=== PATIENT | female | born 1955 | race Two or more races ===

== ENCOUNTER → 2023-12-12 | Outpatient (CLI) | payer MEDICARE | END | disposition home or self-care (01) | LOC: XYW 13:24 | PROVIDERS: ATTEND Internal Medicine | DX: I51.7 Cardiomegaly (principal); R60.0 Localized edema | CPT/HCPCS: 93306 ==

== ENCOUNTER → 2023-12-19 | Outpatient (CLI) | payer MEDICARE ==
[2023-12-19 07:26] LABS: Basophils # (auto) 0 10 ^3/uL (0-0.2); Basophils % (auto) 0.6 % (0.0-2.0); Eosinophils # (auto) 0 10 ^3/uL (0-0.8); Eosinophils % (auto) 0.5 % (0.0-7.0); Hematocrit 38.3 % (36.0-46.0); Hemoglobin 12.6 g/dL (12.2-16.2); Lymphocytes # (auto) 2.4 10 ^3/uL (0.4-5.4); Lymphocytes % (auto) 32.3 % (10.0-50.0); Mean Corpuscular Hemoglobin 31.4 pg (28.0-32.0); Mean Corpuscular Hgb Conc. 32.9 g/dL (32.0-36.0); Mean Corpuscular Volume 95.5 fL (80.0-100.0); Monocytes # (auto) 0.6 10 ^3/uL (0-1.3); Monocytes % (auto) 8.5 % (0.0-12.0); Neutrophils # (auto) 4.4 10 ^3/uL (1.6-8.6); Neutrophils % (auto) 58.1 % (37.0-80.0); Red Blood Cells 4.02 10^6/uL (4.0-5.20); Red Cell Distribution Width 13.4 % (11.8-14.3); White Blood Cell 7.5 10^3/uL (4.4-10.8)
[2023-12-19 08:03] LABS: Erythrocyte Sedimentation Rate 20 mm/hr (0-20)
[2023-12-19 08:09] LABS: Alanine Aminotransferase 42 U/L (7-40); Albumin 4.2 g/dL (3.2-4.8); Alkaline Phosphatase 90 U/L (46-116); Anion Gap 6 (5-15); Aspartate Aminotransferase 26 U/L (13-40); BUN/Creatinine Ratio 17.9 (10.0-20.0); Blood Urea Nitrogen 14 mg/dL (9-23); CRP High Sensitivity 0.15 mg/dL (<1.0); Calcium 9.6 mg/dL (8.5-10.1); Carbon Dioxide 29 mmol/L (20-30); Chloride 108 mmol/L (98-107); Cholesterol 192 mg/dL (< 200); Glucose 97 mg/dL (74-106); LDL Cholesterol 119 mg/dL (< 100); Potassium 3.9 mmol/L (3.5-5.1); Sodium 143 mmol/L (136-145); Triglycerides 107 mg/dL (< 150)
[2023-12-19 08:10] LABS: Bilirubin, Total 0.9 mg/dL (0.2-1.0); HDL Cholesterol 62 mg/dL (40-59); Total Protein 6.7 g/dL (5.7-8.2)
== END | disposition home or self-care (01) ==
LOC: LAB 07:11
PROVIDERS: ATTEND Internal Medicine
DX: M25.551 Pain in right hip (principal); R60.0 Localized edema; E78.00 Pure hypercholesterolemia, unspecified
CPT/HCPCS: 36415; 80053; 80061; 83036; 84443; 85025; 85379; 85652; 86141

== ENCOUNTER → 2024-05-01 | Outpatient (CLI) | payer MEDICARE ==
[2024-05-01 16:28] LABS: Basophils # (auto) 0 10 ^3/uL (0-0.2); Basophils % (auto) 0.4 % (0.0-2.0); Eosinophils # (auto) 0 10 ^3/uL (0-0.8); Eosinophils % (auto) 0.2 % (0.0-7.0); Hematocrit 34.8 % (36.0-46.0); Hemoglobin 11.7 g/dL (12.2-16.2); Lymphocytes # (auto) 2.2 10 ^3/uL (0.4-5.4); Lymphocytes % (auto) 22.6 % (10.0-50.0); Mean Corpuscular Hgb Conc. 33.6 g/dL (32.0-36.0); Mean Corpuscular Volume 95.4 fL (80.0-100.0); Monocytes # (auto) 0.9 10 ^3/uL (0-1.3); Monocytes % (auto) 8.7 % (0.0-12.0); Neutrophils # (auto) 6.6 10 ^3/uL (1.6-8.6); Neutrophils % (auto) 68.1 % (37.0-80.0); Red Blood Cells 3.65 10^6/uL (4.0-5.20); White Blood Cell 9.8 10^3/uL (4.4-10.8)
[2024-05-01 16:47] LABS: Alanine Aminotransferase 29 U/L (7-40); Albumin 4.1 g/dL (3.2-4.8); Alkaline Phosphatase 89 U/L (46-116); Anion Gap 5 (5-15); Aspartate Aminotransferase 16 U/L (13-40); BUN/Creatinine Ratio 17.2 (10.0-20.0); Blood Urea Nitrogen 17 mg/dL (9-23); Calcium 9.6 mg/dL (8.5-10.1); Carbon Dioxide 30 mmol/L (20-30); Chloride 107 mmol/L (98-107); Glucose 116 mg/dL (74-106); Sodium 142 mmol/L (136-145)
[2024-05-01 16:48] LABS: Bilirubin, Total 0.7 mg/dL (0.2-1.0)
[2024-05-01 16:49] LABS: Total Protein 6.4 g/dL (5.7-8.2)
[2024-05-01 18:00] LABS: INR 0.98 (0.9-1.15); Prothrombin Time 10.4 sec (9.3-11.8)
== END | disposition home or self-care (01) ==
LOC: LAB 16:08
PROVIDERS: ATTEND Internal Medicine
DX: I83.93 Asymptomatic varicose veins of bilateral lower extremities (principal); R22.30 Localized swelling, mass and lump, unspecified upper limb; I51.7 Cardiomegaly
CPT/HCPCS: 36415; 80053; 85025; 85610

== ENCOUNTER 2024-06-07 11:38 | Emergency (ER) | payer MEDICARE ==
[~2024-06-07] VITALS: Ht 157.5 cm; Wt 70.7 kg
[2024-06-07 12:17] VITALS: TEMP 97.7
[2024-06-07 14:08] VITALS: BP 149/55; PULSE 61; RESP 18; O2SAT 97
[2024-06-07] MEDS: HYDROcodone-ACET 5/325MG TAB PO ONE (14:21)
[2024-06-07] MEDS ORDERED: IBUP-1456 PO (14:43)
[2024-06-07] MEDS ORDERED: GABA-1250 PO (14:43)
== END 2024-06-07 14:53 | disposition home or self-care (01) ==
LOC: ER 11:38
DX: M51.16 Intervertebral disc disorders with radiculopathy, lumbar region (principal); M25.562 Pain in left knee
CPT/HCPCS: 72100; 73562

== ENCOUNTER → 2024-06-11 | Outpatient (CLI) | payer MEDICARE ==
[~2024-06-11] MED LIST: GABA-1250 PO; IBUP-1456 PO
[2024-06-11 12:49] LABS: INR 0.94 (0.9-1.15)
[2024-06-11 13:07] LABS: Erythrocyte Sedimentation Rate 42 mm/hr (0-20)
[2024-06-12 08:06] LABS: Complement C3 170 mg/dL (82-167); Rheumatoid Arthritis Factor 10.9 IU/mL (<14.0); Thyroid Peroxidase (TPO) Ab 15 IU/mL (0-34)
[2024-06-12 11:07] LABS: Anti-Nuclear Antibody Direct Negative (Negative); Anti-dsDNA Antibody <1 IU/mL (0-9); Antiscleroderma-70 Antibody <0.2 AI (0.0-0.9); RNP Antibody <0.2 AI (0.0-0.9); Sjogren's Anti-SS-A Antibody <0.2 AI (0.0-0.9); Sjogren's Anti-SS-B Antibody <0.2 AI (0.0-0.9); Smith Antibody <0.2 AI (0.0-0.9)
[2024-06-13 11:07] LABS: Actin (Smooth Muscle) Antibody 2 Units (0-19); Mitochondrial (M2) Antibody <20.0 Units (0.0-20.0)
[2024-06-13 13:07] LABS: Anti-Striated Muscle Antibody Negative (Neg:<1:100)
[2024-06-14 19:06] LABS: Estrogens Total 323 pg/mL (40-244)
== END | disposition home or self-care (01) ==
LOC: LAB 11:56
PROVIDERS: ATTEND Internal Medicine
DX: M54.50 Low back pain, unspecified (principal); R23.3 Spontaneous ecchymoses; I83.93 Asymptomatic varicose veins of bilateral lower extremities; E78.00 Pure hypercholesterolemia, unspecified; Z79.899 Other long term (current) drug therapy
CPT/HCPCS: 36415; 82306; 82672; 84403; 84443; 85610; 85652; 86160; 86225; 86235; 86376; 86431

== ENCOUNTER → 2024-06-25 | Outpatient (CLI) | payer MEDICARE ==
[2024-06-25 15:04] LABS: Basophils # (auto) 0 10 ^3/uL (0-0.2); Basophils % (auto) 0.5 % (0.0-2.0); Eosinophils # (auto) 0 10 ^3/uL (0-0.8); Eosinophils % (auto) 0.1 % (0.0-7.0); Hematocrit 34.6 % (36.0-46.0); Hemoglobin 11.7 g/dL (12.2-16.2); Lymphocytes # (auto) 1.3 10 ^3/uL (0.4-5.4); Lymphocytes % (auto) 14.2 % (10.0-50.0); Mean Corpuscular Hemoglobin 32.5 pg (28.0-32.0); Mean Corpuscular Hgb Conc. 33.7 g/dL (32.0-36.0); Mean Corpuscular Volume 96.4 fL (80.0-100.0); Monocytes # (auto) 0.7 10 ^3/uL (0-1.3); Monocytes % (auto) 7.9 % (0.0-12.0); Neutrophils # (auto) 7.3 10 ^3/uL (1.6-8.6); Neutrophils % (auto) 77.3 % (37.0-80.0); Red Blood Cells 3.59 10^6/uL (4.0-5.20); Red Cell Distribution Width 13.6 % (11.8-14.3); White Blood Cell 9.4 10^3/uL (4.4-10.8)
[2024-06-25 15:44] LABS: Erythrocyte Sedimentation Rate 26 mm/hr (0-20)
== END | disposition home or self-care (01) ==
LOC: LAB 14:46
PROVIDERS: ATTEND Internal Medicine
DX: M25.562 Pain in left knee (principal); M25.552 Pain in left hip
CPT/HCPCS: 36415; 84550; 85025; 85652

== ENCOUNTER 2024-07-14 13:16 | Emergency (ER) | payer MEDICARE ==
[~2024-07-14] VITALS: Ht 157.5 cm; Wt 70.6 kg
[2024-07-14 13:20] VITALS: TEMP 97.5
[2024-07-14 15:18] VITALS: PULSE 80; RESP 16; O2SAT 96
[2024-07-14 15:19] VITALS: BP 132/61; PULSE 69; RESP 16; O2SAT 98
[2024-07-14] MEDS ORDERED: ACET-1080 PO (15:26)
[2024-07-14] MEDS ORDERED: PRED20TA2 PO (15:26)
[2024-07-14] MEDS: methylPREDNISolone SOD SUCC 125 MG/2 ML VL IM ONE (15:29)
== END 2024-07-14 15:49 | disposition home or self-care (01) ==
LOC: ER 13:16
DX: M17.12 Unilateral primary osteoarthritis, left knee (principal); G89.29 Other chronic pain; M25.562 Pain in left knee; M54.50 Low back pain, unspecified; Z86.2 Personal history of diseases of the blood and blood-forming organs and certain disorders involving the immune mechanism; Z79.899 Other long term (current) drug therapy
CPT/HCPCS: 96372; 99283; J2919

== ENCOUNTER → 2024-07-18 | Outpatient (CLI) | payer MEDICARE ==
[~2024-07-18] MED LIST changes: +ACET-1080 PO; +ACET-1881 PO; +ERGO1CAP12 PO; +MELO15TA29 PO; +PRED20TA2 PO; +TRAM50TA2 PO
[2024-07-18 15:30] LABS: Basophils # (auto) 0 10 ^3/uL (0-0.2); Basophils % (auto) 0.2 % (0.0-2.0); Eosinophils # (auto) 0 10 ^3/uL (0-0.8); Hematocrit 35.2 % (36.0-46.0); Hemoglobin 11.5 g/dL (12.2-16.2); Lymphocytes # (auto) 0.9 10 ^3/uL (0.4-5.4); Mean Corpuscular Hemoglobin 31.7 pg (28.0-32.0); Mean Corpuscular Hgb Conc. 32.8 g/dL (32.0-36.0); Mean Corpuscular Volume 96.7 fL (80.0-100.0); Monocytes # (auto) 0.2 10 ^3/uL (0-1.3); Monocytes % (auto) 2.7 % (0.0-12.0); Neutrophils # (auto) 7.4 10 ^3/uL (1.6-8.6); Neutrophils % (auto) 87.1 % (37.0-80.0); Nucleated Red Blood Cells % 0.1 %; Platelet Count (auto) 274 10^3/uL (140-450); Red Blood Cells 3.64 10^6/uL (4.0-5.20); Red Cell Distribution Width 13.4 % (11.8-14.3); White Blood Cell 8.5 10^3/uL (4.4-10.8)
[2024-07-18 16:44] LABS: Erythrocyte Sedimentation Rate 28 mm/hr (0-20)
[2024-07-18 16:56] LABS: Free T3 2.41 pg/mL (2.3-4.2); Free T4 (Free Thyroxine) 1.34 ng/dL (0.89-1.76)
== END | disposition home or self-care (01) ==
LOC: LAB 15:03
PROVIDERS: ATTEND Internal Medicine
DX: E55.9 Vitamin D deficiency, unspecified (principal); D64.9 Anemia, unspecified; M54.50 Low back pain, unspecified
CPT/HCPCS: 36415; 82306; 84439; 84443; 84481; 85025; 85652

== ENCOUNTER 2024-07-19 13:55 | Inpatient (IN) | payer MEDICARE ==
[~2024-07-19] VITALS: Ht 157.5 cm; Wt 74.0 kg
[~2024-07-19 13:55] MED LIST changes: -ACET-1881 PO; -ERGO1CAP12 PO; -MELO15TA29 PO; -TRAM50TA2 PO
[2024-07-19 15:22] LABS: Basophils # (auto) 0 10 ^3/uL (0-0.2); Basophils % (auto) 0.1 % (0.0-2.0); Eosinophils # (auto) 0 10 ^3/uL (0-0.8); Hematocrit 35.2 % (36.0-46.0); Hemoglobin 11.8 g/dL (12.2-16.2); Lymphocytes # (auto) 1.8 10 ^3/uL (0.4-5.4); Lymphocytes % (auto) 16.4 % (10.0-50.0); Mean Corpuscular Hemoglobin 32.2 pg (28.0-32.0); Mean Corpuscular Hgb Conc. 33.5 g/dL (32.0-36.0); Monocytes # (auto) 0.9 10 ^3/uL (0-1.3); Monocytes % (auto) 7.9 % (0.0-12.0); Neutrophils # (auto) 8.4 10 ^3/uL (1.6-8.6); Neutrophils % (auto) 75.6 % (37.0-80.0); Nucleated Red Blood Cells % 0.1 %; Platelet Count (auto) 285 10^3/uL (140-450); Red Blood Cells 3.67 10^6/uL (4.0-5.20); Red Cell Distribution Width 13.5 % (11.8-14.3); White Blood Cell 11.1 10^3/uL (4.4-10.8)
[2024-07-19 15:37] LABS: Anion Gap 8 (5-15); Carbon Dioxide 24 mmol/L (20-30); Chloride 108 mmol/L (98-107); Potassium 3.4 mmol/L (3.5-5.1); Sodium 140 mmol/L (136-145)
[2024-07-19 15:38] LABS: Calcium 9.4 mg/dL (8.7-10.4)
[2024-07-19 15:43] LABS: BUN/Creatinine Ratio 29.6 (10.0-20.0); Blood Urea Nitrogen 24 mg/dL (9-23); Glucose 155 mg/dL (74-106)
[2024-07-19 16:15] LABS: INR 0.99 (0.9-1.15); Partial Thromboplastin Time 21.7 SEC (24.5-34.5); Prothrombin Time 10.5 sec (9.3-11.8)
[2024-07-19] MEDS: ENOXAPARIN SOD 100 MG/1 ML SYRINGE SC ONE (16:15)
[2024-07-19] MEDS: ONDANSETRON HCL 4 MG/2 ML VIAL IV ONE (17:47)
[2024-07-19] MEDS: MORPHINE SULFATE 4 MG/ML SYR/VIAL IV ONE (17:48)
[2024-07-19] MEDS ORDERED: HYDROcodone-ACET 5/325MG TAB PO PRN (21:45)
[2024-07-19] MEDS ORDERED: DOCUSATE SOD 100 MG CAP PO PRN (21:45)
[2024-07-19] MEDS ORDERED: ONDANSETRON HCL 4 MG/2 ML VIAL IV PRN (21:45)
[2024-07-19] MEDS ORDERED: NITROGLYCERIN 0.4 MG SL TAB SL PRN (22:30)
[2024-07-19 23:38] VITALS: PULSE 63; RESP 16; O2SAT 100
[2024-07-20] VITALS (10 sets, daily range): BP systolic 117–158; BP diastolic 68–94; PULSE 53–69; RESP 16–20; TEMP 97.4–98.2; O2SAT 96–98
[2024-07-20] MEDS: SODIUM CHLORIDE 0.9% 1,000 ML IV SCH (00:08)
[2024-07-20] MEDS: POTASSIUM CHL 20 Meq TABLET PO ONE (00:08)
[2024-07-20] MEDS ORDERED: MELO15TA29 PO (02:33)
[2024-07-20] MEDS ORDERED: ERGO1CAP12 PO (02:33)
[2024-07-20] MEDS: MORPHINE SULFATE INJ 2 MG/ml SYRG IV PRN (02:46)
[2024-07-20 04:53] LABS: Basophils # (auto) 0 10 ^3/uL (0-0.2); Basophils % (auto) 0.3 % (0.0-2.0); Eosinophils # (auto) 0 10 ^3/uL (0-0.8); Eosinophils % (auto) 0.2 % (0.0-7.0); Hematocrit 34.9 % (36.0-46.0); Hemoglobin 11.8 g/dL (12.2-16.2); Lymphocytes # (auto) 2.5 10 ^3/uL (0.4-5.4); Lymphocytes % (auto) 31.3 % (10.0-50.0); Mean Corpuscular Hemoglobin 33.2 pg (28.0-32.0); Mean Corpuscular Hgb Conc. 33.7 g/dL (32.0-36.0); Mean Corpuscular Volume 98.5 fL (80.0-100.0); Monocytes # (auto) 0.6 10 ^3/uL (0-1.3); Monocytes % (auto) 8.1 % (0.0-12.0); Neutrophils # (auto) 4.8 10 ^3/uL (1.6-8.6); Neutrophils % (auto) 60.1 % (37.0-80.0); Nucleated Red Blood Cells % 0.1 %; Platelet Count (auto) 248 10^3/uL (140-450); Red Blood Cells 3.54 10^6/uL (4.0-5.20); Red Cell Distribution Width 14.2 % (11.8-14.3); White Blood Cell 7.9 10^3/uL (4.4-10.8)
[2024-07-20 05:19] LABS: Alanine Aminotransferase 27 U/L (7-40); Albumin 3.6 g/dL (3.2-4.8); Alkaline Phosphatase 78 U/L (46-116); Anion Gap 5 (5-15); Aspartate Aminotransferase 15 U/L (13-40); BUN/Creatinine Ratio 31.2 (10.0-20.0); Blood Urea Nitrogen 24 mg/dL (9-23); Calcium 8.9 mg/dL (8.7-10.4); Carbon Dioxide 28 mmol/L (20-30); Chloride 109 mmol/L (98-107); Glucose 97 mg/dL (74-106); Potassium 3.8 mmol/L (3.5-5.1); Sodium 142 mmol/L (136-145)
[2024-07-20 05:20] LABS: Bilirubin, Total 0.7 mg/dL (0.2-1.0)
[2024-07-20] MEDS: ENOXAPARIN SOD 80 MG/0.8ML SYRINGE SC SCH (05:55)
[2024-07-20] MEDS ORDERED: TRAM50TA2 PO ×2 (06:15→06:21)
[2024-07-20] MEDS ORDERED: PRED20TA2 PO (06:17)
[2024-07-20] MEDS ORDERED: ACET-1881 PO (06:23)
[2024-07-20] MEDS ORDERED: IBUPROFEN 400 MG TAB PO PRN (14:45)
[2024-07-20] MEDS: ACETAMINOPHEN 325 MG TAB PO PRN (20:17)
[2024-07-21] VITALS (9 sets, daily range): BP systolic 144–172; BP diastolic 62–82; PULSE 63–79; RESP 17–20; TEMP 97.6–99.1; O2SAT 95–99
[2024-07-21 06:44] LABS: Basophils # (auto) 0 10 ^3/uL (0-0.2); Basophils % (auto) 0.4 % (0.0-2.0); Eosinophils # (auto) 0 10 ^3/uL (0-0.8); Eosinophils % (auto) 0.3 % (0.0-7.0); Hemoglobin 12.2 g/dL (12.2-16.2); Lymphocytes # (auto) 2.3 10 ^3/uL (0.4-5.4); Lymphocytes % (auto) 31.2 % (10.0-50.0); Mean Corpuscular Hemoglobin 32.9 pg (28.0-32.0); Mean Corpuscular Hgb Conc. 33.8 g/dL (32.0-36.0); Mean Corpuscular Volume 97.4 fL (80.0-100.0); Monocytes # (auto) 0.5 10 ^3/uL (0-1.3); Monocytes % (auto) 6.9 % (0.0-12.0); Neutrophils # (auto) 4.6 10 ^3/uL (1.6-8.6); Neutrophils % (auto) 61.2 % (37.0-80.0); Platelet Count (auto) 231 10^3/uL (140-450); Red Blood Cells 3.69 10^6/uL (4.0-5.20); Red Cell Distribution Width 13.7 % (11.8-14.3); White Blood Cell 7.4 10^3/uL (4.4-10.8)
[2024-07-21 07:07] LABS: Alanine Aminotransferase 27 U/L (7-40); Albumin 3.7 g/dL (3.2-4.8); Alkaline Phosphatase 84 U/L (46-116); Anion Gap 4 (5-15); Aspartate Aminotransferase 14 U/L (13-40); BUN/Creatinine Ratio 23.4 (10.0-20.0); Bilirubin, Total 0.8 mg/dL (0.2-1.0); Blood Urea Nitrogen 18 mg/dL (9-23); Calcium 9.2 mg/dL (8.7-10.4); Carbon Dioxide 30 mmol/L (20-30); Chloride 106 mmol/L (98-107); Glucose 92 mg/dL (74-106); Potassium 4.2 mmol/L (3.5-5.1); Sodium 140 mmol/L (136-145); Total Protein 5.9 g/dL (5.7-8.2)
[2024-07-21] MEDS: ASPirin 81 mg TAB PO SCH (10:03)
[2024-07-21] MEDS: amLODIPine BESYLATE 5 MG TAB PO ONE (17:18)
[2024-07-22] VITALS (9 sets, daily range): BP systolic 124–151; BP diastolic 59–89; PULSE 69–80; RESP 16–20; TEMP 98–98.9; O2SAT 92–96
[2024-07-22] MEDS: traMADol HCL 50 MG TAB PO PRN (09:32)
[2024-07-22] MEDS: amLODIPine BESYLATE 5 MG TAB PO SCH (09:32)
[2024-07-22] MEDS ORDERED: amLODIPine BESYLATE 5 MG TAB PO SCH (10:00)
[2024-07-22] MEDS: predniSONE 20 MG TAB PO SCH (12:16)
[2024-07-23] VITALS (8 sets, daily range): BP systolic 122–156; BP diastolic 63–83; PULSE 63–80; RESP 16–96; TEMP 97.8–98.5; O2SAT 0–97
[2024-07-23 07:24] LABS: Urine Bacteria FEW /hpf (None Seen); Urine Blood Negative /uL (Negative); Urine Budding Yeast OCCASIONAL /hpf (None Seen); Urine Clarity Clear (Clear); Urine Protein, UAD Negative (Negative); Urine Specific Gravity 1.005 (1.001-1.035); Urine Urobilinogen Normal (Negative); Urine WBC 1 /hpf (0 - 5); Urine pH 6.5 (5.0-9.0)
[2024-07-23 07:29] LABS: Urine Color STRAW (Yellow)
[2024-07-23 08:53] LABS: Basophils # (auto) 0 10 ^3/uL (0-0.2); Basophils % (auto) 0.1 % (0.0-2.0); Eosinophils # (auto) 0 10 ^3/uL (0-0.8); Hematocrit 36.7 % (36.0-46.0); Hemoglobin 12.6 g/dL (12.2-16.2); Lymphocytes # (auto) 0.9 10 ^3/uL (0.4-5.4); Lymphocytes % (auto) 10.8 % (10.0-50.0); Mean Corpuscular Hemoglobin 33.5 pg (28.0-32.0); Mean Corpuscular Hgb Conc. 34.4 g/dL (32.0-36.0); Mean Corpuscular Volume 97.5 fL (80.0-100.0); Monocytes # (auto) 0.2 10 ^3/uL (0-1.3); Monocytes % (auto) 2.9 % (0.0-12.0); Neutrophils # (auto) 7.5 10 ^3/uL (1.6-8.6); Neutrophils % (auto) 86.2 % (37.0-80.0); Platelet Count (auto) 270 10^3/uL (140-450); Red Blood Cells 3.76 10^6/uL (4.0-5.20); Red Cell Distribution Width 13.7 % (11.8-14.3); White Blood Cell 8.7 10^3/uL (4.4-10.8)
[2024-07-23 09:18] LABS: Alanine Aminotransferase 49 U/L (7-40); Albumin 4.1 g/dL (3.2-4.8); Alkaline Phosphatase 96 U/L (46-116); Anion Gap 9 (5-15); Aspartate Aminotransferase 26 U/L (13-40); BUN/Creatinine Ratio 23.9 (10.0-20.0); Blood Urea Nitrogen 16 mg/dL (9-23); Calcium 9.5 mg/dL (8.7-10.4); Carbon Dioxide 24 mmol/L (20-30); Chloride 104 mmol/L (98-107); Glucose 174 mg/dL (74-106); Potassium 3.7 mmol/L (3.5-5.1); Sodium 137 mmol/L (136-145)
[2024-07-23 09:19] LABS: Bilirubin, Total 0.7 mg/dL (0.2-1.0); Total Protein 6.6 g/dL (5.7-8.2)
[2024-07-23] MEDS: ENOXAPARIN SOD 40 MG/0.4 ML SYRINGE SC ONE (11:30)
[2024-07-23] MEDS: PANTOPRAZOLE 40 MG TAB PO ONE (13:09)
[2024-07-23] MEDS: SODIUM CHLORIDE 0.9% 1,000 ML IV SCH (13:10)
[2024-07-23] MEDS: hydrALAZINE HCL 20 MG/ML VL IV PRN (16:15)
[2024-07-24] VITALS (10 sets, daily range): BP systolic 119–151; BP diastolic 59–79; PULSE 64–80; RESP 14–22; TEMP 97.4–98.2; O2SAT 94–100
[2024-07-24] MEDS: PANTOPRAZOLE 40 MG TAB PO SCH (06:00)
[2024-07-24 07:00] LABS: INR 0.98 (0.9-1.15); Partial Thromboplastin Time 21.9 SEC (24.5-34.5); Prothrombin Time 10.4 sec (9.3-11.8)
[2024-07-24] MEDS: levoFLOXacin 750MG 150 ML IV ONE (09:27)
[2024-07-24] MEDS ORDERED: ENOXAPARIN SOD 40 MG/0.4 ML SYRINGE SC SCH (10:00)
[2024-07-24 10:32] LABS: Alanine Aminotransferase 41 U/L (7-40); Albumin 3.7 g/dL (3.2-4.8); Alkaline Phosphatase 85 U/L (46-116); Anion Gap 4 (5-15); Aspartate Aminotransferase 17 U/L (13-40); BUN/Creatinine Ratio 31.8 (10.0-20.0); Basophils # (auto) 0.1 10 ^3/uL (0-0.2); Basophils % (auto) 0.7 % (0.0-2.0); Blood Urea Nitrogen 21 mg/dL (9-23); Calcium 9.2 mg/dL (8.7-10.4); Carbon Dioxide 28 mmol/L (20-30); Chloride 108 mmol/L (98-107); Eosinophils # (auto) 0 10 ^3/uL (0-0.8); Eosinophils % (auto) 0.3 % (0.0-7.0); Glucose 93 mg/dL (74-106); Hematocrit 34.3 % (36.0-46.0); Hemoglobin 11.6 g/dL (12.2-16.2); Lymphocytes # (auto) 2.2 10 ^3/uL (0.4-5.4); Lymphocytes % (auto) 24.7 % (10.0-50.0); Mean Corpuscular Hemoglobin 33.3 pg (28.0-32.0); Mean Corpuscular Hgb Conc. 33.9 g/dL (32.0-36.0); Mean Corpuscular Volume 98.2 fL (80.0-100.0); Monocytes # (auto) 0.7 10 ^3/uL (0-1.3); Monocytes % (auto) 8.3 % (0.0-12.0); Neutrophils # (auto) 5.8 10 ^3/uL (1.6-8.6); Platelet Count (auto) 240 10^3/uL (140-450); Red Cell Distribution Width 14.2 % (11.8-14.3); Sodium 140 mmol/L (136-145); White Blood Cell 8.8 10^3/uL (4.4-10.8)
[2024-07-24 10:33] LABS: Bilirubin, Total 0.6 mg/dL (0.2-1.0); Total Protein 5.9 g/dL (5.7-8.2)
[2024-07-24] MEDS: TRANEXAMIC ACID 20 ML ONE (14:32)
[2024-07-24] MEDS ORDERED: fentaNYL CITRATE 100 MCG/2 ML VL ONE (15:14)
[2024-07-24] MEDS ORDERED: MEPERIDINE HCL (50 MG/ML) 1 ML VIAL ONE (15:15)
[2024-07-24] MEDS ORDERED: MIDAZOLAM HCL 2MG/2ML 2ml VIAL (1mg/ml) ONE (15:15)
[2024-07-24] MEDS: ceFAZolin 2 GM/D5W50ml 50 ML IV ONE (15:35)
[2024-07-24] MEDS ORDERED: DexAMETHasone SOD PHOS 10MG/1ML VIAL INJ ONE (15:44)
[2024-07-24] MEDS ORDERED: PROPOFOL 10 MG/ML 20 ML IV ONE ×2 (15:44→17:22)
[2024-07-24] MEDS: LIDOCAINE W/ EPINEPHRINE 1% 20ML VIAL ONE (16:16)
[2024-07-24] MEDS ORDERED: MORPHINE SULFATE INJ 2 MG/ml SYRG IV PRN ×2 (18:00→19:30)
[2024-07-24] MEDS ORDERED: ONDANSETRON HCL 4 MG/2 ML VIAL IV PRN (18:00)
[2024-07-24] MEDS ORDERED: HYDROmorphone HCL 2 MG/ML VL/or syr IV PRN ×2 (19:30)
[2024-07-24] MEDS: CYCLOBENZAPRINE HCL 10 MG TAB PO SCH (20:15)
[2024-07-24] MEDS: DOCUSATE SOD 100 MG CAP PO SCH (21:30)
[2024-07-24] MEDS: METOCLOPRAMIDE HCL 5MG/ml INJ 2ml VIAL IV ONE (21:30)
[2024-07-24] MEDS: ceFAZolin 1GM/50ML 50 ML IV SCH (21:31)
[2024-07-24] MEDS: KETOROLAC TROMETH 30 MG/ML 1ML VIAL IV ONE (21:31)
[2024-07-24] MEDS: D5W/SOD CHLO 0.9% 1,000 ML IV SCH (21:32)
[2024-07-25] VITALS (7 sets, daily range): BP systolic 121–163; BP diastolic 50–68; PULSE 65–90; RESP 16–18; TEMP 97.6–98.5; O2SAT 95–100
[2024-07-25] MEDS: HYDROcodone-ACET 10/325MG TAB PO PRN (02:52)
[2024-07-25 07:04] LABS: Basophils # (auto) 0 10 ^3/uL (0-0.2); Basophils % (auto) 0.1 % (0.0-2.0); Eosinophils # (auto) 0 10 ^3/uL (0-0.8); Hematocrit 29.7 % (36.0-46.0); Hemoglobin 9.8 g/dL (12.2-16.2); Lymphocytes # (auto) 0.6 10 ^3/uL (0.4-5.4); Lymphocytes % (auto) 5.4 % (10.0-50.0); Mean Corpuscular Volume 97.1 fL (80.0-100.0); Monocytes # (auto) 0.5 10 ^3/uL (0-1.3); Monocytes % (auto) 4.5 % (0.0-12.0); Neutrophils # (auto) 10.5 10 ^3/uL (1.6-8.6); Platelet Count (auto) 203 10^3/uL (140-450); Red Blood Cells 3.06 10^6/uL (4.0-5.20); Red Cell Distribution Width 13.5 % (11.8-14.3); White Blood Cell 11.7 10^3/uL (4.4-10.8)
[2024-07-25 07:47] LABS: Alanine Aminotransferase 35 U/L (7-40); Alkaline Phosphatase 77 U/L (46-116); Anion Gap 6 (5-15); Calcium 8.9 mg/dL (8.7-10.4); Carbon Dioxide 25 mmol/L (20-30); Chloride 106 mmol/L (98-107); Glucose 165 mg/dL (74-106); Sodium 137 mmol/L (136-145)
[2024-07-25 07:48] LABS: BUN/Creatinine Ratio 19.4 (10.0-20.0); Blood Urea Nitrogen 13 mg/dL (9-23)
[2024-07-25 07:49] LABS: Albumin 3.2 g/dL (3.2-4.8); Aspartate Aminotransferase 28 U/L (13-40)
[2024-07-25 07:50] LABS: Bilirubin, Total 0.5 mg/dL (0.2-1.0); Total Protein 5.1 g/dL (5.7-8.2)
[2024-07-25] MEDS: MORPHINE SULFATE INJ 2 MG/ml SYRG IV PRN ×2 (09:35→23:30)
[2024-07-25] MEDS: D5W/SOD CHLO 0.9% 1,000 ML IV SCH (15:34)
[2024-07-26] VITALS (9 sets, daily range): BP systolic 110–157; BP diastolic 50–81; PULSE 71–88; RESP 16–18; TEMP 98.1–100.4; O2SAT 16–97
[2024-07-26 06:33] LABS: Basophils # (auto) 0 10 ^3/uL (0-0.2); Basophils % (auto) 0.3 % (0.0-2.0); Eosinophils # (auto) 0 10 ^3/uL (0-0.8); Eosinophils % (auto) 0.1 % (0.0-7.0); Hematocrit 25.1 % (36.0-46.0); Hemoglobin 8.7 g/dL (12.2-16.2); Lymphocytes # (auto) 1.4 10 ^3/uL (0.4-5.4); Lymphocytes % (auto) 15.8 % (10.0-50.0); Mean Corpuscular Hemoglobin 33.9 pg (28.0-32.0); Mean Corpuscular Hgb Conc. 34.6 g/dL (32.0-36.0); Mean Corpuscular Volume 98.1 fL (80.0-100.0); Monocytes # (auto) 0.8 10 ^3/uL (0-1.3); Monocytes % (auto) 9.3 % (0.0-12.0); Neutrophils # (auto) 6.5 10 ^3/uL (1.6-8.6); Neutrophils % (auto) 74.5 % (37.0-80.0); Nucleated Red Blood Cells % 0.1 %; Platelet Count (auto) 166 10^3/uL (140-450); Red Blood Cells 2.56 10^6/uL (4.0-5.20); Red Cell Distribution Width 13.9 % (11.8-14.3); White Blood Cell 8.7 10^3/uL (4.4-10.8)
[2024-07-26 06:49] LABS: Alanine Aminotransferase 29 U/L (7-40); Alkaline Phosphatase 66 U/L (46-116); Anion Gap 7 (5-15); Aspartate Aminotransferase 26 U/L (13-40); Blood Urea Nitrogen 13 mg/dL (9-23); Calcium 8.1 mg/dL (8.7-10.4); Carbon Dioxide 27 mmol/L (20-30); Chloride 106 mmol/L (98-107); Glucose 123 mg/dL (74-106); Potassium 3.4 mmol/L (3.5-5.1); Sodium 140 mmol/L (136-145)
[2024-07-26 06:50] LABS: Albumin 3.1 g/dL (3.2-4.8); Bilirubin, Total 0.8 mg/dL (0.2-1.0); Total Protein 4.9 g/dL (5.7-8.2)
[2024-07-26] MEDS: POTASSIUM EFFERVESENT TAB 25 MEQ PO ONE (09:13)
[2024-07-26] MEDS: MAGNESIUM OXIDE 400 MG TAB PO ONE (14:32)
[2024-07-26] MEDS: ACETAMINOPHEN 325 MG TAB PO PRN (21:25)
[2024-07-27] VITALS (7 sets, daily range): BP systolic 115–144; BP diastolic 49–63; PULSE 64–92; RESP 16–18; TEMP 98–99.3; O2SAT 93–98
[2024-07-27 06:48] LABS: Basophils # (auto) 0.1 10 ^3/uL (0-0.2); Basophils % (auto) 0.5 % (0.0-2.0); Eosinophils # (auto) 0 10 ^3/uL (0-0.8); Eosinophils % (auto) 0.2 % (0.0-7.0); Hematocrit 26.4 % (36.0-46.0); Hemoglobin 9.2 g/dL (12.2-16.2); Lymphocytes # (auto) 1.7 10 ^3/uL (0.4-5.4); Lymphocytes % (auto) 16.6 % (10.0-50.0); Mean Corpuscular Hemoglobin 33.3 pg (28.0-32.0); Mean Corpuscular Hgb Conc. 34.7 g/dL (32.0-36.0); Mean Corpuscular Volume 96.1 fL (80.0-100.0); Monocytes # (auto) 0.9 10 ^3/uL (0-1.3); Monocytes % (auto) 8.4 % (0.0-12.0); Neutrophils # (auto) 7.6 10 ^3/uL (1.6-8.6); Neutrophils % (auto) 74.3 % (37.0-80.0); Nucleated Red Blood Cells % 0.1 %; Platelet Count (auto) 169 10^3/uL (140-450); Red Blood Cells 2.75 10^6/uL (4.0-5.20); Red Cell Distribution Width 13.5 % (11.8-14.3); White Blood Cell 10.2 10^3/uL (4.4-10.8)
[2024-07-27 06:59] LABS: Alanine Aminotransferase 27 U/L (7-40); Albumin 3.1 g/dL (3.2-4.8); Alkaline Phosphatase 74 U/L (46-116); Anion Gap 3 (5-15); Aspartate Aminotransferase 28 U/L (13-40); BUN/Creatinine Ratio 24.1 (10.0-20.0); Blood Urea Nitrogen 13 mg/dL (9-23); Calcium 8.6 mg/dL (8.7-10.4); Carbon Dioxide 30 mmol/L (20-30); Chloride 102 mmol/L (98-107); Glucose 103 mg/dL (74-106); Potassium 3.2 mmol/L (3.5-5.1)
[2024-07-27 07:00] LABS: Bilirubin, Total 1.2 mg/dL (0.2-1.0); Sodium 135 mmol/L (136-145); Total Protein 5.2 g/dL (5.7-8.2)
[2024-07-27] MEDS: POTASSIUM CHL 20 Meq TABLET PO ONE (21:43)
[2024-07-28 01:00] VITALS: BP 138/46; PULSE 93; RESP 17; TEMP 100.6; O2SAT 97
[2024-07-28 05:00] VITALS: BP 100/51; PULSE 80; RESP 19; TEMP 100.9; O2SAT 97
[2024-07-28 09:00] VITALS: BP 143/49; PULSE 86; RESP 14; TEMP 98.2; O2SAT 98
[2024-07-28 13:00] VITALS: BP 124/55; PULSE 85; RESP 18; TEMP 98.7; O2SAT 94
[2024-07-28] MEDS ORDERED: TRAM50TA2 PO (14:13)
[2024-07-28] MEDS ORDERED: NAPR-746 PO (16:51)
[2024-07-28 17:01] VITALS: BP 152/75; PULSE 95; RESP 18; TEMP 98.6; O2SAT 93
[2024-07-28] MEDS ORDERED: GLYCOPYRROLATE 0.2 MG/ML 1ML VIAL IV ONE (19:24)
[2024-07-28] MEDS ORDERED: PHENYLEPHRINE HCL 10 MG/ML VL IV ONE (19:24)
[2024-07-28] MEDS ORDERED: SUCCINYLCHOLINE CHLORIDE 20 MG/ML 10ML VIAL IV ONE (19:24)
== END 2024-07-28 19:25 | disposition home health service (06) | DRG 457 ==
LOC: ER 13:55 → TELE 22:20 → TELE-WESTW 07-20 02:00 → WEST WING 07-23 14:39
PROVIDERS: ADMIT Internal Medicine; ATTEND Internal Medicine
PROC: 00NY0ZZ Release Lumbar Spinal Cord, Open Approach (ICD-10-PCS; 2024-07-24)
PROC: 01NB0ZZ Release Lumbar Nerve, Open Approach (ICD-10-PCS; 2024-07-24)
PROC: 4A11X4G Monitoring of Peripheral Nervous Electrical Activity, Intraoperative, External Approach (ICD-10-PCS; 2024-07-24)
PROC: 0SG1071 Fusion of 2 or more Lumbar Vertebral Joints with Autologous Tissue Substitute, Posterior Approach, Posterior Column, Open Approach (ICD-10-PCS; principal; 2024-07-24 15:15)
DX: M48.062 Spinal stenosis, lumbar region with neurogenic claudication (principal); M48.56XA Collapsed vertebra, not elsewhere classified, lumbar region, initial encounter for fracture; M41.56 Other secondary scoliosis, lumbar region; M43.16 Spondylolisthesis, lumbar region; M47.26 Other spondylosis with radiculopathy, lumbar region; M51.16 Intervertebral disc disorders with radiculopathy, lumbar region; S80.11XA Contusion of right lower leg, initial encounter; E87.6 Hypokalemia; D64.9 Anemia, unspecified; W18.39XA Other fall on same level, initial encounter; I10 Essential (primary) hypertension; M17.0 Bilateral primary osteoarthritis of knee; Y93.89 Activity, other specified; Y92.89 Other specified places as the place of occurrence of the external cause; Y99.8 Other external cause status
CPT/HCPCS: 36415; 71045; 72100; 72131; 72148; 73590; 76000; 80048; 80053; 81001; 82306; 83036; 83735; 84439; 84443; 84481; 85025; 85610; 85652; 85730; 86850; 86900; 86901; 93005; 93970; 93971; 96372; 96374; 96375; 97110; 97116; 97162; 97163; 97530; G0378; J0330; J1100; J1885; J1956; J2250; J2405; J2704; J7042

== ENCOUNTER → 2024-09-12 | Outpatient (CLI) | payer MEDICARE ==
[~2024-09-12] MED LIST changes: -ACET-1080 PO; +ACET-1881 PO; +ERGO1CAP12 PO; +MELO15TA29 PO; +NAPR-746 PO; +TRAM50TA2 PO
[2024-09-12 15:26] LABS: Basophils # (auto) 0.1 10 ^3/uL (0-0.2); Basophils % (auto) 0.6 % (0.0-2.0); Eosinophils # (auto) 0 10 ^3/uL (0-0.8); Hematocrit 31.9 % (36.0-46.0); Hemoglobin 10.3 g/dL (12.2-16.2); Lymphocytes # (auto) 2.7 10 ^3/uL (0.4-5.4); Lymphocytes % (auto) 27.4 % (10.0-50.0); Mean Corpuscular Hemoglobin 29.8 pg (28.0-32.0); Mean Corpuscular Hgb Conc. 32.4 g/dL (32.0-36.0); Mean Corpuscular Volume 92.1 fL (80.0-100.0); Monocytes # (auto) 0.7 10 ^3/uL (0-1.3); Monocytes % (auto) 6.9 % (0.0-12.0); Neutrophils # (auto) 6.4 10 ^3/uL (1.6-8.6); Neutrophils % (auto) 65.1 % (37.0-80.0); Platelet Count (auto) 254 10^3/uL (140-450); Red Blood Cells 3.46 10^6/uL (4.0-5.20); Red Cell Distribution Width 14.5 % (11.8-14.3); White Blood Cell 9.8 10^3/uL (4.4-10.8)
[2024-09-12 16:00] LABS: Folate (Folic Acid) 14.56 ng/mL (>5.38)
[2024-09-12 16:08] LABS: Erythrocyte Sedimentation Rate 19 mm/hr (0-20)
== END | disposition home or self-care (01) ==
LOC: LAB 15:01
PROVIDERS: ATTEND Internal Medicine
DX: D47.3 Essential (hemorrhagic) thrombocythemia (principal)
CPT/HCPCS: 36415; 82607; 82746; 85025; 85652

== ENCOUNTER → 2024-10-30 | Outpatient (CLI) | payer MEDICARE ==
[2024-10-30 13:13] LABS: Urine Bacteria None Seen /hpf (None Seen)
[2024-10-30 13:25] LABS: Basophils # (auto) 0 10 ^3/uL (0-0.2); Basophils % (auto) 0.4 % (0.0-2.0); Eosinophils # (auto) 0 10 ^3/uL (0-0.8); Hematocrit 35.1 % (36.0-46.0); Hemoglobin 11.3 g/dL (12.2-16.2); Lymphocytes # (auto) 1.9 10 ^3/uL (0.4-5.4); Lymphocytes % (auto) 26.3 % (10.0-50.0); Mean Corpuscular Hemoglobin 28.3 pg (28.0-32.0); Mean Corpuscular Hgb Conc. 32.2 g/dL (32.0-36.0); Mean Corpuscular Volume 87.7 fL (80.0-100.0); Monocytes # (auto) 0.5 10 ^3/uL (0-1.3); Monocytes % (auto) 7.4 % (0.0-12.0); Neutrophils # (auto) 4.8 10 ^3/uL (1.6-8.6); Neutrophils % (auto) 65.9 % (37.0-80.0); Platelet Count (auto) 299 10^3/uL (140-450); Red Blood Cells 4.01 10^6/uL (4.0-5.20); Red Cell Distribution Width 14.8 % (11.8-14.3); White Blood Cell 7.3 10^3/uL (4.4-10.8)
[2024-10-30 13:57] LABS: Urine Blood TRACE /uL (Negative); Urine Clarity Clear (Clear); Urine Color Yellow (Yellow); Urine Mucus FEW (None Seen); Urine Protein, UAD Negative (Negative); Urine Specific Gravity 1.026 (1.001-1.035); Urine Urobilinogen Normal (Negative); Urine WBC 4 /hpf (0 - 5)
[2024-10-30 14:05] LABS: % Iron Saturation 15.8 % (15-50)
== END | disposition home or self-care (01) ==
LOC: LAB 12:56
PROVIDERS: ATTEND Internal Medicine
DX: I10 Essential (primary) hypertension (principal); D64.9 Anemia, unspecified
CPT/HCPCS: 36415; 81001; 82728; 83021; 83540; 83550; 83615; 85025; 85660; 86880

== ENCOUNTER 2025-01-06 16:43 | Inpatient (IN) | payer MEDICARE ==
[~2025-01-06] VITALS: Ht 152.4 cm; Wt 63.0 kg
--- NOTE | 2025-01-06 17:11 | ED.PDOC ---
GI ASSESSMENT HPI Comments 69 y.o female presents to the ED for a chief complaint of RUQ pain associated with nausea and chills that started 8 days ago. Patient describes pain as sharp, constant, non radiating and rating a 8/10 on the pain scale. Patient denies any vomiting, fever, diarrhea, recent falls or injuries to pain site. Patient has been taking Tramadol for pain, has some relief but pain comes back. Chief Complaint: Abdominal Pain Time Seen by MD: 17:00 Primary Care Provider: TANNER Reviewed Notes: Nurses Notes, Medications, Allergies Allergies: Coded Allergies: NO KNOWN ALLERGIES (Unverified , 07/19/24) Home Meds Active Scripts Naproxen (Naproxen) 500 Mg Tab, 500 MG PO BID PRN, #30 TAB Prov:MALA DENNY DO 07/28/24 Gabapentin (Gabapentin) 300 Mg Cap, 1 CAP PO BID, #40 CAP Prov:RODRIGO LOPEZ 06/07/24 Ibuprofen (Ibuprofen) 800 Mg Tab, 1 TAB PO TID, #30 TAB Prov:RODRIGO LOPEZ 06/07/24 Reported Medications Acetaminophen (Acetaminophen) 325 Mg Tab, 650 MG PO BID for mild pain for 30 Days, MG 0 Refills 07/20/24 Tramadol Hcl (Tramadol Hcl) 50 Mg Tab, 50 MG PO DAILY for pain, MG 07/20/24 Prednisone (Prednisone) 20 Mg Tab, 20 MG PO BID, MG 07/20/24 Ergocalciferol (Vitamin D) 50,000 Unit Cap, 1 CAP PO QWEEKLY 07/20/24 Meloxicam (Meloxicam) 15 Mg Tab, 1 TAB PO DAILY 07/20/24 Information Source: Patient Mode of Arrival: Ambulatory Timing: Days (8) Duration: Since onset Quality: Aching Vomitus: None Stool: Normal Severity: Moderate Recent: None Recent Hx of: None Pain Location: RUQ Modifying Factors: Nothing Associated sign and symptoms: Nausea, Abdominal Pain Past Medical History PAST MEDICAL HISTORY: Anemia, Arthritis Surgical History (Other): back SENIOR SALES COMPENSATION ANALYST History: No Pertinent SENIOR SALES COMPENSATION ANALYST History Family History Family History: Reviewed,noncontributory to illness Social History Smoker: Non-Smoker Alcohol: Denies ETOH Use Drugs: Denies Drug Use Lives In: Home Constitutional: reports: chills; denies: diaphoresis, fatigue, fever, malaise, sweats, weakness, others EENTM: denies: blurred vision, double vision, ear bleeding, ear discharge, ear drainage, ear pain, ear ringing, eye pain, eye redness, hearing loss, mouth pain, mouth swelling, nasal discharge, nose bleeding, nose congestion, nose pain, photophobia, tearing, throat pain, throat swelling, voice changes, others Respiratory: denies: cough, hemoptysis, orthopnea, SOB at rest, shortness of breath, SOB with excertion, stridor, wheezing, others Cardiovascular: denies: chest pain, dizzy spells, diaphoresis, Dyspnea on exertion, edema, irregular heart beat, left arm pain, lightheadedness, palpitations, PND, syncope, others Gastrointestinal: reports: abdominal pain, nausea; denies: abdomen distended, blood streaked bowels, constipated, diarrhea, dysphagia, difficulty swallowing, hematemesis, melena, poor appetite, poor fluid intake, rectal bleeding, rectal pain, vomiting, others Genitourinary: denies: abnormal vagina bleeding, burning, dyspareunia, dysuria, flank pain, frequency, hematuria, incontinence, pain, , vagina discharge, urgency, others Neurological: denies: dizziness, fainting, headache, left sided numbness, left sided weakness, numbness, paresthesia, pre-existing deficit, right sided numbness, right sided weakness, seizure, speech problems, tingling, tremors, weakness, others Musculoskeletal: reports: back pain; denies: gout, joint pain, joint swelling, muscle pain, muscle stiffness, neck pain, others Integumetry: denies: bruises, change in color, change in hair/nails, dryness, laceration, lesions, lumps, rash, wounds, others Allergic/Immunocompromised: denies: Difficulty Healing, Frequent Infections, Hives, Itching, others Hematologic/Lymphatic: denies: anemia, blood clots, easy bleeding, easy bruising, swollen glands, others Endocrine: denies: excessive hunger, excessive sweating, excessive thirst, excessive urination, flushing, intolerance to cold, intolerance to heat, unexplained weight gain, unexplained weight loss, others Psychiatric: denies: anxiety, bipolar disorder, depression, hopeless, panic disorder, schizophrenia, sleepless, suicidal, others All Other Systems: Reviewed and Negative Physical Exam General Appearance: Moderate Distress HEENT: Normal ENT Inspection, Pharynx Normal, TMs Normal Neck: Full Range of Motion, Non-Tender, Normal, Normal Inspection Respiratory: Chest Non-Tender, Lungs Clear, No Accessory Muscle Use, No Respiratory Distress, Normal Breath Sounds Cardiovascular: No Edema, No JVD, No Murmur, No Gallop, Normal Peripheral Pulses, Regular Rate/Rhythm Breast Exam: Deferred Gastrointestinal: No Organomegaly, No Pulsatile Mass, Normal Bowel Sounds, RUQ, Soft, Tenderness Genitalia: Deferred Pelvic: Deferred Rectal: Deferred Extremities: No calf tenderness, Normal capillary refill, Normal inspection, Normal range of motion, Non-tender, No pedal edema Musculoskeletal : Apperance: Normal Neurologic: Alert, legislative assistant II-XII nml as Tested, No Motor Deficits, Normal Affect, Normal Mood, No Sensory Deficits Cerebellar Function: Normal Reflexes: Normal Skin: Dry, Normal Color, Warm Lymphatic: No Adenopathy Was a procedure done? Was a procedure done?: No GI differential Dx Differential Diagnosis: Cholangitis, Cholecystitis, Esophagitis, Gastroenteritis X-Ray, Labs, Meds, VS Vital Signs Date Time Temp Pulse Resp B/P (MAP) Pulse Ox O2 Delivery O2 Flow Rate FiO2 01/06/25 17:05 97.7 93 17 137/62 (87) 93 01/06/25 17:04 97.7 78 17 137/62 (87) 93 97.7 Lab Test 01/06/25 17:33 Range/Units White Blood Count 6.2 4.4-10.8 10^3/uL Red Blood Count 3.78 L 4.0-5.20 10^6/uL Hemoglobin 11.2 L 12.2-16.2 g/dL Hematocrit 33.4 L 36.0-46.0 % Mean Corpuscular Volume 88.2 80.0-100.0 fL Mean Corpuscular Hemoglobin 29.5 28.0-32.0 pg Mean Corpuscular Hemoglobin Concent 33.4 32.0-36.0 g/dL Red Cell Distribution Width 15.4 H 11.8-14.3 % Platelet Count 211 140-450 10^3/uL Mean Platelet Volume 9.2 6.9-10.8 fL Neutrophils (%) (Auto) 60.7 37.0-80.0 % Lymphocytes (%) (Auto) 30.0 10.0-50.0 % Monocytes (%) (Auto) 8.6 0.0-12.0 % Eosinophils (%) (Auto) 0.0 0.0-7.0 % Basophils (%) (Auto) 0.7 0.0-2.0 % Neutrophils # (Auto) 3.8 1.6-8.6 10 ^3/uL Lymphocytes # (Auto) 1.9 0.4-5.4 10 ^3/uL Monocytes # (Auto) 0.5 0-1.3 10 ^3/uL Eosinophils # (Auto) 0 0-0.8 10 ^3/uL Basophils # (Auto) 0 0-0.2 10 ^3/uL Nucleated Red Blood Cells 0.1 % Sodium Level 140 136-145 mmol/L Potassium Level 3.4 L 3.5-5.1 mmol/L Chloride Level 103 98-107 mmol/L Carbon Dioxide Level 29 20-31 mmol/L Anion Gap 8 5-15 Blood Urea Nitrogen 13 9-23 mg/dL Creatinine 0.65 0.550-1.02 mg/dL Glomerular Filtration Rate Calc 96 >90 mL/min BUN/Creatinine Ratio 20.0 10.0-20.0 Serum Glucose 99 74-106 mg/dL Calcium Level 9.6 8.7-10.4 mg/dL Total Bilirubin 0.4 0.2-1.0 mg/dL Aspartate Amino Transferase (AST) 30 13-40 U/L Alanine Aminotransferase (ALT) 40 7-40 U/L Alkaline Phosphatase 137 H 46-116 U/L Total Protein 6.2 5.7-8.2 g/dL Albumin 4.2 3.2-4.8 g/dL Lipase 40 12-53 U/L The patient's CBC shows anemia with a hemoglobin of 11.2 and hematocrit of 33.4 The chemistry panel is within normal limits The lipase is within normal limits At this time, the patient had an ultrasound of the gallbladder which shows no gallstones The patient was being admitted with a diagnosis of abdominal pain unknown etiology Images Reviewed?: Images reviewed and evaluated by me Time of 1ST Reevaluation: 17:09 Reevaluation 1ST: Unchanged Patient Education/Counseling: Diagnosis, Treatment, Prognosis Family Education/Counseling: No Family Present Departure 1 Departure Time of Disposition: 18:23 Impression: Primary Impression: Abdominal pain of unknown etiology Disposition: ADMITTED INPATIENT Admit to: Med Surg Condition: Fair Critical Care Note Critical Care Time?: No Stability Stability form required: Yes Unstable for transfer: ED Physician Assesment (Clinical assesment) I personally scribed for SIRI LUCAS MD ([email or web address]) on 01/06/25 at 17:11. Electronically submitted by Nimisha Deluna ([facility]). SIRI LUCAS MD Jan 06, 2025 17:11
[2025-01-06 17:54] LABS: Basophils # (auto) 0 10 ^3/uL (0-0.2); Basophils % (auto) 0.7 % (0.0-2.0); Eosinophils # (auto) 0 10 ^3/uL (0-0.8); Hematocrit 33.4 % (36.0-46.0); Hemoglobin 11.2 g/dL (12.2-16.2); Lymphocytes # (auto) 1.9 10 ^3/uL (0.4-5.4); Mean Corpuscular Hemoglobin 29.5 pg (28.0-32.0); Mean Corpuscular Hgb Conc. 33.4 g/dL (32.0-36.0); Mean Corpuscular Volume 88.2 fL (80.0-100.0); Monocytes # (auto) 0.5 10 ^3/uL (0-1.3); Monocytes % (auto) 8.6 % (0.0-12.0); Neutrophils # (auto) 3.8 10 ^3/uL (1.6-8.6); Neutrophils % (auto) 60.7 % (37.0-80.0); Nucleated Red Blood Cells % 0.1 %; Platelet Count (auto) 211 10^3/uL (140-450); Red Blood Cells 3.78 10^6/uL (4.0-5.20); Red Cell Distribution Width 15.4 % (11.8-14.3); White Blood Cell 6.2 10^3/uL (4.4-10.8)
--- NOTE | 2025-01-06 18:07 | DVH ---
INDICATION: pain TECHNIQUE: Multiple real-time sonographic images were obtained of the right upper quadrant. COMPARISON: None FINDINGS: The liver demonstrates heterogeneous echotexture without focal mass lesions. The liver ezekiel sures 14.3 cm. There is no intrahepatic or extrahepatic ductal dilatation. The common duct is not clearly visualize d. The gallbladder is without evidence of stone or sludge. The gallbladder wall measures 0.2 cm and is within normal limits. The right kidney measures 10.1 cm. The right kidney is normal in contour, size, and shape. The echo genicity is normal. There is no hydronephrosis. The pancreas is not well visualized due to overlying bowel gas. IMPRESSION: 1. No acute findings identified. 2. Hepatic steatosis.
[2025-01-06 18:08] LABS: Albumin 4.2 g/dL (3.2-4.8); Anion Gap 8 (5-15); Aspartate Aminotransferase 30 U/L (13-40); Blood Urea Nitrogen 13 mg/dL (9-23); Calcium 9.6 mg/dL (8.7-10.4); Carbon Dioxide 29 mmol/L (20-31); Chloride 103 mmol/L (98-107); Glucose 99 mg/dL (74-106); Lipase 40 U/L (12-53); Sodium 140 mmol/L (136-145)
[2025-01-06 18:09] LABS: Bilirubin, Total 0.4 mg/dL (0.2-1.0); Total Protein 6.2 g/dL (5.7-8.2)
[2025-01-06 18:11] LABS: Alanine Aminotransferase 40 U/L (7-40); Alkaline Phosphatase 137 U/L (46-116); Potassium 3.4 mmol/L (3.5-5.1)
[2025-01-07 00:01] VITALS: PULSE 88; RESP 20; O2SAT 96
[2025-01-07 00:23] LABS: Urine Bacteria None Seen /hpf (None Seen)
[2025-01-07 00:39] LABS: Urine Blood Negative /uL (Negative); Urine Clarity Clear (Clear); Urine Color Yellow (Yellow); Urine Mucus FEW (None Seen); Urine Protein, UAD Negative (Negative); Urine Specific Gravity 1.021 (1.001-1.035); Urine Squamous Epithelial Cell FEW /hpf (<5); Urine Urobilinogen Normal (Negative); Urine WBC 21 /HPF (0-5)
[2025-01-07] MEDS ORDERED: ONDANSETRON HCL 4 MG/2 ML VIAL IV PRN (02:45)
[2025-01-07] MEDS ORDERED: ACETAMINOPHEN 325 MG TAB PO PRN (02:45)
[2025-01-07] MEDS: HYDROcodone-ACET 5/325MG TAB PO PRN (03:47)
[2025-01-07 03:50] LABS: Basophils # (auto) 0 10 ^3/uL (0-0.2); Basophils % (auto) 0.6 % (0.0-2.0); Eosinophils # (auto) 0 10 ^3/uL (0-0.8); Hematocrit 33.6 % (36.0-46.0); Hemoglobin 11.1 g/dL (12.2-16.2); Lymphocytes # (auto) 1.8 10 ^3/uL (0.4-5.4); Lymphocytes % (auto) 28.2 % (10.0-50.0); Mean Corpuscular Hemoglobin 29.3 pg (28.0-32.0); Mean Corpuscular Hgb Conc. 33.2 g/dL (32.0-36.0); Mean Corpuscular Volume 88.3 fL (80.0-100.0); Monocytes # (auto) 0.6 10 ^3/uL (0-1.3); Neutrophils # (auto) 3.9 10 ^3/uL (1.6-8.6); Neutrophils % (auto) 62.2 % (37.0-80.0); Nucleated Red Blood Cells % 0.2 %; Platelet Count (auto) 204 10^3/uL (140-450); Red Cell Distribution Width 14.7 % (11.8-14.3); White Blood Cell 6.2 10^3/uL (4.4-10.8)
[2025-01-07] MEDS: PANTOPRAZOLE 40 MG/10 ML VIAL INJ IV ONE (04:08)
--- NOTE | 2025-01-07 04:13 | DVH ---
Examination: ABPL CLINICAL INDICATION: Epigastric/right upper quadrant abdominal pain COMPARISON: None. CONTRAST USED: None. TECHNIQUE: A plain CT study of the abdomen and pelvis was performed with 5 mm thin slices. The exam ination was conducted according to ALARA (As Low as Reasonably Achievable) principles. Multiplanar r econstructions were obtained. FINDINGS: CT ABDOMEN Lung Bases: A 6 mm nodule in the right middle lobe posteriorly and a 3 mm subpleural nodule in the r ight middle lobe anteriorly (image #4/2). Subsegmental atelectasis in the right middle lobe and left lingular segment. Mild mosaic attenuation in both lower lobes. Liver: Fatty infiltration of the liver is noted. A hypodensity (9 mm) is seen in the right lobe of the liver. The liver is otherwise normal in size, with no intrahepatic biliary dilatation. Spleen: The spleen is normal in size and does not show any focal abnormality. Gallbladder and Biliary Tree: The gallbladder is normal, with no intrinsic abnormality. The common bile duct is not dilated. Pancreas: The pancreas is normal in size and shape. No focal lesion is seen within, and the [place]ip[place] creatic fat-planes are normal. Retroperitoneum: Both adrenal glands are normal in size and morphology. No significant retroperiton eal lymphadenopathy is noted. The kidneys are normal in size, with no hydronephrosis or renal calcul i. Stomach and Bowel: The stomach is unremarkable. No ascites is present. Skeletal System: Degenerative changes of the thoracolumbar spine with multilevel disc space narrowin g, vacuum phenomenon and endplate changes are noted. Anterior wedge compression of the L2 vertebral body is observed. Pedicle screw with spinal fixation hardware is seen at the L3-L5 level. Vessels: Atherosclerotic calcification is noted in the aorta. The IVC and mesenteric vessels cannot be fully assessed in this unenhanced CT scan. CT PELVIS Appendix: The appendix is unremarkable. Colon: Fecal filled colonic loops are noted suggestive of constipation in the appropriate clinical s etting. Bladder: The urinary bladder is unremarkable. Pelvic Organs: A tiny fat-containing umbilical hernia is noted. The uterus and both ovaries are unr emarkable. IMPRESSION: 1. Mild cardiomegaly is noted. 2. Small sliding hiatus hernia is seen. 3. Fatty infiltration of the liver is noted. A hypodensity (9 mm) in the right lobe of the liver , likely indicating hepatic cyst. 4. Tiny fat-containing umbilical hernia is present. 5. Fecal filled colonic loops, suggestive of constipation in the appropriate clinical setting. 6. A 6 mm nodule in the right middle lobe posteriorly and a 3 mm subpleural nodule in the right midd le lobe anteriorly (image #4/2). 7. Subsegmental atelectasis in the right middle lobe and left lingular segment. Mild mosaic attenua tion in both lower lobes. 8. Degenerative changes of the thoracolumbar spine with multilevel disc space narrowing, vacuum phen omenon, endplate changes, and anterior wedge compression of the L2 vertebral body. Pedicle screw wit h spinal fixation hardware noted at the L3-L5 level. Fleischner Society pulmonary nodule recommendations: Multiple solid nodules: Low-risk patients: No routine follow-up required. High-risk patients: Optional CT at 12 months. Electronically Signed 01/07/2025 04:11 Regino Olson
[2025-01-07 04:14] LABS: Alanine Aminotransferase 36 U/L (7-40); Albumin 4.2 g/dL (3.2-4.8); Anion Gap 7 (5-15); Aspartate Aminotransferase 25 U/L (13-40); BUN/Creatinine Ratio 18.2 (10.0-20.0); Blood Urea Nitrogen 12 mg/dL (9-23); Calcium 9.9 mg/dL (8.7-10.4); Carbon Dioxide 30 mmol/L (20-31); Chloride 102 mmol/L (98-107); Glucose 106 mg/dL (74-106); Potassium 3.5 mmol/L (3.5-5.1); Sodium 139 mmol/L (136-145)
[2025-01-07 04:15] LABS: Bilirubin, Total 0.7 mg/dL (0.2-1.0); Total Protein 6.2 g/dL (5.7-8.2)
[2025-01-07 04:37] LABS: Alkaline Phosphatase 134 U/L (46-116)
--- NOTE | 2025-01-07 04:55 | DVHHP2 ---
History of Present Illness Reason for Visit: Abdominal History of Present Illness 69-year-old female presents for evaluation of abdominal pain. Patient reports a one-week history of epigastric abdominal pain that radiates to her right upper quadrant. She states his symptoms are intermittent and describes it as sharp. Patient also reports episodes of nausea without emesis. Denies diarrhea or constipation. No fever or chills. No other acute complaints at the moment. Past Medical History Arthritis and anemia Past Surgical History Denies Family History Noncontributory Smoke: No ALCOHOL: none Drugs: None Lives: with Family Review of Systems Review of Systems Review of systems are currently negative otherwise addressed in HPI. Allergies: Coded Allergies: NO KNOWN ALLERGIES (Unverified , 07/19/24) Medications Current Medications Medications Dose Ordered Sig/Arabella Route Start Time Stop Time Status Last Admin Dose Admin Pantoprazole Sodium 40 mg DAILY IV 01/08/25 10:00 Acetaminophen/ Hydrocodone Bitart 1 tab Q4HP PRN PO 01/07/25 02:45 01/07/25 03:47 1 TAB Ondansetron HCl 4 mg Q4HP PRN IV 01/07/25 02:45 Acetaminophen 650 mg Q6HP PRN PO 01/07/25 02:45 Morphine Sulfate 2 mg Q6HPRN PRN IV 01/07/25 02:45 Exam Vital Signs Vital Signs Date Time Temp Pulse Resp B/P (MAP) Pulse Ox O2 Delivery O2 Flow Rate FiO2 01/07/25 03:49 98.2 64 20 140/65 (90) 98 98.2 01/07/25 03:49 Room Air 01/07/25 00:01 0 21 Exam Gen: 69-year-old female in mild distress Skin: Warm, dry, normal color and texture, no rash. HEENT: Normocephalic atraumatic, mucous membranes moist and pink. Neck: Cervical and supraclavicular nodes normal without enlargement, trachea is midline, thyroid gland is normal without masses. Pulmonary: Clear to auscultation and percussion bilaterally. Cardiac: Regular rate and rhythm. No murmur Abdomen: Soft, right upper quadrant tenderness, nondistended, bowel sounds present all 4 quadrants, no guarding, no rigidity, no organomegaly. Extremities: No cyanosis, clubbing, no edema Neuro: Cranial nerves II through XII grossly intact, normal affect and speech, no focal motor deficits. Labs/Xrays ORDERING PHYSICIAN: SIRI LUCAS MD PROCEDURE(s): GBUS - GALLBLADDER REASON: pain ORDER NUMBER(s): [id number], ACCESSION NUMBER(s): [id number] INDICATION: pain TECHNIQUE: Multiple real-time sonographic images were obtained of the right upper quadrant. COMPARISON: None FINDINGS: The liver demonstrates heterogeneous echotexture without focal mass lesions. The liver measures 14.3 cm. There is no intrahepatic or extrahepatic ductal dilatation. The common duct is not clearly visualized. The gallbladder is without evidence of stone or sludge. The gallbladder wall measures 0.2 cm and is within normal limits. The right kidney measures 10.1 cm. The right kidney is normal in contour, size, and shape. The echogenicity is normal. There is no hydronephrosis. The pancreas is not well visualized due to overlying bowel gas. IMPRESSION: 1. No acute findings identified. 2. Hepatic steatosis. RING PHYSICIAN: BARBARA CROWELL AGACNP PROCEDURE(s): ABPL - CT AB PEL WO CON-NO ORAL OR IV REASON: Epigastric/right upper quadrant abdominal pain ORDER NUMBER(s): [id number], ACCESSION NUMBER(s): [id number] Examination: ABPL CLINICAL INDICATION: Epigastric/right upper quadrant abdominal pain COMPARISON: None. CONTRAST USED: None. TECHNIQUE: A plain CT study of the abdomen and pelvis was performed with 5 mm thin slices. The examination was conducted according to ALARA (As Low as Reasonably Achievable) principles. Multiplanar reconstructions were obtained. FINDINGS: CT ABDOMEN Lung Bases: A 6 mm nodule in the right middle lobe posteriorly and a 3 mm subpleural nodule in the right middle lobe anteriorly (image #4/2). Subsegmental atelectasis in the right middle lobe and left lingular segment. Mild mosaic attenuation in both lower lobes. Liver: Fatty infiltration of the liver is noted. A hypodensity (9 mm) is seen in the right lobe of the liver. The liver is otherwise normal in size, with no intrahepatic biliary dilatation. Spleen: The spleen is normal in size and does not show any focal abnormality. Gallbladder and Biliary Tree: The gallbladder is normal, with no intrinsic abnormality. The common bile duct is not dilated. Pancreas: The pancreas is normal in size and shape. No focal lesion is seen within, and the [place]ip[place]creatic fat-planes are normal. Retroperitoneum: Both adrenal glands are normal in size and morphology. No significant retroperitoneal lymphadenopathy is noted. The kidneys are normal in size, with no hydronephrosis or renal calculi. Stomach and Bowel: The stomach is unremarkable. No ascites is present. Skeletal System: Degenerative changes of the thoracolumbar spine with multilevel disc space narrowing, vacuum phenomenon and endplate changes are noted. Anterior wedge compression of the L2 vertebral body is observed. Pe dicle screw with spinal fixation hardware is seen at the L3-L5 level. Vessels: Atherosclerotic calcification is noted in the aorta. The IVC and mesenteric vessels cannot be fully assessed in this unenhanced CT scan. CT PELVIS Appendix: The appendix is unremarkable. Colon: Fecal filled colonic loops are noted suggestive of constipation in the appropriate clinical setting. Bladder: The urinary bladder is unremarkable. Pelvic Organs: A tiny fat-containing umbilical hernia is noted. The uterus and both ovaries are unremarkable. IMPRESSION: 1. Mild cardiomegaly is noted. 2. Small sliding hiatus hernia is seen. 3. Fatty infiltration of the liver is noted. A hypodensity (9 mm) in the right lobe of the liver , likely indicating hepatic cyst. 4. Tiny fat-containing umbilical hernia is present. 5. Fecal filled colonic loops, suggestive of constipation in the appropriate clinical setting. 6. A 6 mm nodule in the right middle lobe posteriorly and a 3 mm subpleural nodule in the right middle lobe anteriorly (image #4/2). 7. Subsegmental atelectasis in the right middle lobe and left lingular segment. Mild mosaic attenuation in both lower lobes. 8. Degenerative changes of the thoracolumbar spine with multilevel disc space narrowing, vacuum phenomenon, endplate changes, and anterior wedge compression of the L2 vertebral body. Pedicle screw with spinal fixation hardware noted at the L3-L5 level. Fleischner Society pulmonary nodule recommendations: Multiple solid nodules: Low-risk patients: No routine follow-up required. High-risk patients: Optional CT at 12 months. Electronically Signed 01/07/2025 04:11 Regino Olson ATED BY: NATALY BALBUENA MD DICTATED DATE/TIME: 01/07/25410 SIGNED BY: NATALY BALBUENA MD SIGNED DATE/TIME: 01/07/25410 Labs Test 01/07/25 03:33 01/06/25 23:59 01/06/25 17:33 Range/Units White Blood Count 6.2 4.4-10.8 10^3/uL Red Blood Count 3.80 L 4.0-5.20 10^6/uL Hemoglobin 11.1 L 12.2-16.2 g/dL Hematocrit 33.6 L 36.0-46.0 % Mean Corpuscular Volume 88.3 80.0-100.0 fL Mean Corpuscular Hemoglobin 29.3 28.0-32.0 pg Mean Corpuscular Hemoglobin Concent 33.2 32.0-36.0 g/dL Red Cell Distribution Width 14.7 H 11.8-14.3 % Platelet Count 204 140-450 10^3/uL Mean Platelet Volume 9.1 6.9-10.8 fL Neutrophils (%) (Auto) 62.2 37.0-80.0 % Lymphocytes (%) (Auto) 28.2 10.0-50.0 % Monocytes (%) (Auto) 9.0 0.0-12.0 % Eosinophils (%) (Auto) 0.0 0.0-7.0 % Basophils (%) (Auto) 0.6 0.0-2.0 % Neutrophils # (Auto) 3.9 1.6-8.6 10 ^3/uL Lymphocytes # (Auto) 1.8 0.4-5.4 10 ^3/uL Monocytes # (Auto) 0.6 0-1.3 10 ^3/uL Eosinophils # (Auto) 0 0-0.8 10 ^3/uL Basophils # (Auto) 0 0-0.2 10 ^3/uL Nucleated Red Blood Cells 0.2 % Sodium Level 139 136-145 mmol/L Potassium Level 3.5 3.5-5.1 mmol/L Chloride Level 102 98-107 mmol/L Carbon Dioxide Level 30 20-31 mmol/L Anion Gap 7 5-15 Blood Urea Nitrogen 12 9-23 mg/dL Creatinine 0.66 0.550-1.02 mg/dL Glomerular Filtration Rate Calc 96 >90 mL/min BUN/Creatinine Ratio 18.2 10.0-20.0 Serum Glucose 106 74-106 mg/dL Calcium Level 9.9 8.7-10.4 mg/dL Total Bilirubin 0.7 0.2-1.0 mg/dL Aspartate Amino Transferase (AST) 25 13-40 U/L Alanine Aminotransferase (ALT) 36 7-40 U/L Alkaline Phosphatase 134 H 46-116 U/L Total Protein 6.2 5.7-8.2 g/dL Albumin 4.2 3.2-4.8 g/dL Urine Color Yellow Yellow Urine Clarity Clear Clear Urine pH 7.0 5.0-9.0 Urine Specific Maxwell 1.021 1.001-1.035 Urine Protein Negative Negative Urine Ketones Negative Negative Urine Blood Negative Negative /uL Urine Nitrite Negative Negative Urine Bilirubin Negative Negative Urine Urobilinogen Normal Negative mg/dL Urine Leukocyte Esterase 1+ Negative /uL Urine RBC 4 0 - 4 /hpf Urine Microscopic WBC 21 H 0-5 /HPF Urine Squamous Epithelial Cells Few <5 /hpf Urine Bacteria None seen None Seen /hpf Urine Mucus Few None Seen Urine Glucose Normal Normal mg/dL Lipase 40 12-53 U/L Assessment/Plan Assessment/Plan Assessment Acute abdominal pain Urinary tract infection Plan Admit the patient to [facility] to the hospitalist GI consultation Clear liquid diet Rocephin Pain management Continue treatment per orders Plan discussed with: Patient My Orders Orders - BARBARA CROWELL Procedure Category Date Status Time Ct Ab Pel Wo Con-No CT 01/07/25 Resulted Oral Or Iv 02:43 * Gi Dvh Otm Consultant CONS 01/07/25 Transmitted 02:43 Admit ADMIT 01/07/25 Transmitted 02:43 Hydrocodone-Acet PHA 01/07/25 In Process 5/325mg Tab (Ermine 02:45 Ondansetron Hcl PHA 01/07/25 In Process (Zofran) 02:45 Condition: Stable [place]LL 01/07/25 In Process 02:43 Acetaminophen Tablet PHA 01/07/25 In Process (Tylenol Tablet) 02:45 Clear Liq Diet DIET 01/07/25 Transmitted Breakfast Bedrest With Bathroom [place]LL 01/07/25 In Process Privileg 02:43 Morphine Sulfate PHA 01/07/25 In Process Injection 02:45 Pantoprazole PHA 01/08/25 In Process (Protonix) 10:00 Date of Service: Jan 07, 2025 Billing Provider: BARBARA CROWELL Common Visit Codes: [id number] INP/OBS CARE (HIGH) BARBARA CROWELL Jan 07, 2025 04:55
[2025-01-07] MEDS: cefTRIAXone 1GM/50ML D5W 50 ML IV SCH (08:53)
[2025-01-07 08:56] VITALS: PULSE 63; RESP 16; O2SAT 100
[2025-01-07] MEDS ORDERED: DOCUSATE SOD 100 MG CAP PO PRN (12:45)
--- NOTE | 2025-01-07 12:46 | DVHINCON2 ---
GI Consult Consult Note GI consult note Date of Consultation: 01/07/2025 Chief Complaint: Abdominal pain Referring Physician: Chetan CUEVAS H&P: 69-year-old female with past medical history of arthritis and anemia presents to ER with abdominal pain Patient complains of right upper quadrant pain for eight days Patient has nausea. No vomiting or hematemesis. Last BM two days ago. No melena or red blood in stool Patient has history of GERD. Does not take any medications on regular basis Patient has history of back pain and knee pain, treated with tramadol and Tylenol. Denies taking NSAIDs No EGD or colonoscopy in past Patient in ER lobby Past Medical History: Asthma, anemia, back pain Past Surgical History: Denies Social History: NO smoking, drinking ETOH and use of illegal drugs. Family History: Noncontributory Review of Systems: Constitutional: no fever, chill, weight loss HEENT: no eye pain, no hearing loss, no oral lesion, no scleral icterus Heart: no chest pain, no chest pressure Lung: no cough, no dyspnea with exertion Abdomen: see HPI Physical exam: General: NAD, AAOX3 Chest: lung benitez clear to auscultation Heart: RRR, no murmur Abdomen: Moderate RUQ tenderness to palpation, +BS Labs: Labs Test 01/07/25 03:33 01/06/25 23:59 01/06/25 17:33 Range/Units White Blood Count 6.2 4.4-10.8 10^3/uL Red Blood Count 3.80 L 4.0-5.20 10^6/uL Hemoglobin 11.1 L 12.2-16.2 g/dL Hematocrit 33.6 L 36.0-46.0 % Mean Corpuscular Volume 88.3 80.0-100.0 fL Mean Corpuscular Hemoglobin 29.3 28.0-32.0 pg Mean Corpuscular Hemoglobin Concent 33.2 32.0-36.0 g/dL Red Cell Distribution Width 14.7 H 11.8-14.3 % Platelet Count 204 140-450 10^3/uL Mean Platelet Volume 9.1 6.9-10.8 fL Neutrophils (%) (Auto) 62.2 37.0-80.0 % Lymphocytes (%) (Auto) 28.2 10.0-50.0 % Monocytes (%) (Auto) 9.0 0.0-12.0 % Eosinophils (%) (Auto) 0.0 0.0-7.0 % Basophils (%) (Auto) 0.6 0.0-2.0 % Neutrophils # (Auto) 3.9 1.6-8.6 10 ^3/uL Lymphocytes # (Auto) 1.8 0.4-5.4 10 ^3/uL Monocytes # (Auto) 0.6 0-1.3 10 ^3/uL Eosinophils # (Auto) 0 0-0.8 10 ^3/uL Basophils # (Auto) 0 0-0.2 10 ^3/uL Nucleated Red Blood Cells 0.2 % Sodium Level 139 136-145 mmol/L Potassium Level 3.5 3.5-5.1 mmol/L Chloride Level 102 98-107 mmol/L Carbon Dioxide Level 30 20-31 mmol/L Anion Gap 7 5-15 Blood Urea Nitrogen 12 9-23 mg/dL Creatinine 0.66 0.550-1.02 mg/dL Glomerular Filtration Rate Calc 96 >90 mL/min BUN/Creatinine Ratio 18.2 10.0-20.0 Serum Glucose 106 74-106 mg/dL Calcium Level 9.9 8.7-10.4 mg/dL Total Bilirubin 0.7 0.2-1.0 mg/dL Aspartate Amino Transferase (AST) 25 13-40 U/L Alanine Aminotransferase (ALT) 36 7-40 U/L Alkaline Phosphatase 134 H 46-116 U/L Total Protein 6.2 5.7-8.2 g/dL Albumin 4.2 3.2-4.8 g/dL Urine Color Yellow Yellow Urine Clarity Clear Clear Urine pH 7.0 5.0-9.0 Urine Specific [place] 1.021 1.001-1.035 Urine Protein Negative Negative Urine Ketones Negative Negative Urine Blood Negative Negative /uL Urine Nitrite Negative Negative Urine Bilirubin Negative Negative Urine Urobilinogen Normal Negative mg/dL Urine Leukocyte Esterase 1+ Negative /uL Urine RBC 4 0 - 4 /hpf Urine Microscopic WBC 21 H 0-5 /HPF Urine Squamous Epithelial Cells Few <5 /hpf Urine Bacteria None seen None Seen /hpf Urine Mucus Few None Seen Urine Glucose Normal Normal mg/dL Lipase 40 12-53 U/L Imaging: Abdominal ultrasound IMPRESSION: 1. No acute findings identified. 2. Hepatic steatosis. CT abdomen pelvis IMPRESSION: 1. Mild cardiomegaly is noted. 2. Small sliding hiatus hernia is seen. 3. Fatty infiltration of the liver is noted. A hypodensity (9 mm) in the right lobe of the liver , likely indicating hepatic cyst. 4. Tiny fat-containing umbilical hernia is present. 5. Fecal filled colonic loops, suggestive of constipation in the appropriate clinical setting. 6. A 6 mm nodule in the right middle lobe posteriorly and a 3 mm subpleural nodule in the right middle lobe anteriorly (image #4/2). 7. Subsegmental atelectasis in the right middle lobe and left lingular segment. Mild mosaic attenuation in both lower lobes. 8. Degenerative changes of the thoracolumbar spine with multilevel disc space narrowing, vacuum phenomenon, endplate changes, and anterior wedge compression of the L2 vertebral body. Pedicle screw with spinal fixation hardware noted at the L3-L5 level. Assessment: Acute abdominal pain Hepatomegaly Hiatal hernia Possible constipation Plan: Discussed with Dr. Mullins Clear liquid diet Protonix Dulcolax Monitor labs We will continue to monitor the patient Thank you for the consult Date of Service: Jan 07, 2025 Billing Provider: STEVEN SOLORIO Common Visit Codes: CONSULT ONLY Consultation Codes: [id number] CONSULT <45MIN STEVEN SOLORIO Jan 07, 2025 12:46
--- NOTE | 2025-01-07 14:34 | DVHPN2 ---
Subjective Complaining of right upper quadrant abdominal pain Changes from previous H/P or p: Changes Objective Vitals Vital Signs Date Time Temp Pulse Resp B/P (MAP) Pulse Ox O2 Delivery O2 Flow Rate FiO2 01/07/25 08:56 97.9 63 16 149/58 (88) 100 97.9 01/07/25 08:56 Room Air* 0 21 General Appearance: Alert, Oriented X3, Cooperative Lungs: Clear to auscultation, Normal air movement Cardiovascular: Regular rate, Normal S1 Abdomen: Normal bowel sounds, Soft, No tenderness Extremities: No edema Medications Current Medications Medications Dose Ordered Sig/Arabella Route Start Time Stop Time Status Last Admin Dose Admin Acetaminophen/ Hydrocodone Bitart 1 tab Q4HP PRN PO 01/07/25 02:45 01/07/25 03:47 1 TAB Ondansetron HCl 4 mg Q4HP PRN IV 01/07/25 02:45 Acetaminophen 650 mg Q6HP PRN PO 01/07/25 02:45 Morphine Sulfate 2 mg Q6HPRN PRN IV 01/07/25 02:45 Ceftriaxone Sodium 50 ml @ 100 mls/hr DAILY@09 IV 01/07/25 09:00 01/07/25 08:53 100 MLS/HR Pantoprazole Sodium 40 mg DAILY@0600 PO 01/08/25 06:00 Docusate Sodium 100 mg DAILYPRN PRN PO 01/07/25 12:45 Laboratory Results Laboratory Tests 01/07/25 03:33 Chemistry Test 01/06/25 17:33 01/07/25 03:33 Albumin 4.2 g/dL (3.2-4.8) 4.2 g/dL (3.2-4.8) Calcium Level 9.6 mg/dL (8.7-10.4) 9.9 mg/dL (8.7-10.4) Total Protein 6.2 g/dL (5.7-8.2) 6.2 g/dL (5.7-8.2) Lipid panel Test 01/06/25 17:33 Lipase 40 U/L (12-53) LFT Test 01/06/25 17:33 01/07/25 03:33 Alanine Aminotransferase (ALT) 40 U/L (7-40) 36 U/L (7-40) Alkaline Phosphatase 137 U/L (46-116) H 134 U/L (46-116) H Aspartate Amino Transferase (AST) 30 U/L (13-40) 25 U/L (13-40) Total Bilirubin 0.4 mg/dL (0.2-1.0) 0.7 mg/dL (0.2-1.0) Urinalysis Test 01/06/25 23:59 Urine Color Yellow (Yellow) Urine Clarity Clear (Clear) Urine pH 7.0 (5.0-9.0) Urine Specific [place] 1.021 (1.001-1.035) Urine Protein Negative (Negative) Urine Ketones Negative (Negative) Urine Blood Negative /uL (Negative) Urine Nitrite Negative (Negative) Urine Bilirubin Negative (Negative) Urine Urobilinogen Normal mg/dL (Negative) Urine Leukocyte Esterase 1+ /uL (Negative) Urine RBC 4 /hpf (0 - 4) Urine Microscopic WBC 21 /HPF (0-5) H Urine Squamous Epithelial Cells Few /hpf (<5) Urine Bacteria None seen /hpf (None Seen) Urine Mucus Few (None Seen) Urine Glucose Normal mg/dL (Normal) Assessment/Plan Assessment/Plan Abdominal pain UTI Chronic anemia Hypokalemia Arthritis Hepatomegaly Hiatal hernia Plan IV Rocephin for UTI Protonix GI consult Pain management as needed Monitor the patient closely The rest of the management will depend on the hospital course Plan discussed with: Patient Date of Service: Jan 07, 2025 Billing Provider: BELKYS LICONA MD Common Visit Codes: [id number] INP/OBS CARE(HIGH) BELKYS LICONA MD Jan 07, 2025 14:34
[2025-01-07 16:30] VITALS: BP 133/73; PULSE 62; RESP 16; TEMP 98.3; O2SAT 97
[2025-01-07 16:48] VITALS: BP 133/73; PULSE 62; RESP 16; TEMP 98.3; O2SAT 97
[2025-01-07 16:55] VITALS: PULSE 62; RESP 16; O2SAT 97
[2025-01-07] MEDS: MORPHINE SULFATE INJ 2 MG/ml SYRG IV PRN (20:31)
[2025-01-07 21:00] VITALS: BP 142/63; PULSE 71; RESP 18; TEMP 98.2; O2SAT 100
[2025-01-08] VITALS (7 sets, daily range): BP systolic 125–147; BP diastolic 58–75; PULSE 59–66; RESP 17–19; TEMP 98–98.6; O2SAT 94–100
[2025-01-08] MEDS: PANTOPRAZOLE 40 MG TAB PO SCH (05:45)
[2025-01-08] MEDS ORDERED: PANTOPRAZOLE 40 MG/10 ML VIAL INJ IV SCH (10:00)
--- NOTE | 2025-01-08 10:19 | DVHPN2 ---
Subjective She is still complaining of right upper quadrant abdominal pain Changes from previous H/P or p: Changes Objective Vitals Vital Signs Date Time Temp Pulse Resp B/P (MAP) Pulse Ox O2 Delivery O2 Flow Rate FiO2 01/08/25 09:00 98.3 59 17 125/62 (83) 97 98.3 01/07/25 20:00 Room Air* 0 21 Intake/Output Intake and Output 01/08/25 07:00 Intake Total 440 ml Balance 440 ml Intake Oral 390 ml IV Total 50 ml # Voids 9 General Appearance: Alert, Oriented X3, Cooperative Lungs: Clear to auscultation, Normal air movement Cardiovascular: Regular rate, Normal S1 Abdomen: Normal bowel sounds, Soft, No tenderness Extremities: No edema Medications Current Medications Medications Dose Ordered Sig/Arabella Route Start Time Stop Time Status Last Admin Dose Admin Acetaminophen/ Hydrocodone Bitart 1 tab Q4HP PRN PO 01/07/25 02:45 01/08/25 09:05 1 TAB Ondansetron HCl 4 mg Q4HP PRN IV 01/07/25 02:45 Acetaminophen 650 mg Q6HP PRN PO 01/07/25 02:45 Morphine Sulfate 2 mg Q6HPRN PRN IV 01/07/25 02:45 01/07/25 20:31 2 MG Ceftriaxone Sodium 50 ml @ 100 mls/hr DAILY@09 IV 01/07/25 09:00 01/08/25 09:04 100 MLS/HR Pantoprazole Sodium 40 mg DAILY@0600 PO 01/08/25 06:00 01/08/25 05:45 40 MG Docusate Sodium 100 mg DAILYPRN PRN PO 01/07/25 12:45 Laboratory Results Laboratory Tests 01/07/25 03:33 Urinalysis Test 01/06/25 23:59 Urine Color Yellow (Yellow) Urine Clarity Clear (Clear) Urine pH 7.0 (5.0-9.0) Urine Specific [place] 1.021 (1.001-1.035) Urine Protein Negative (Negative) Urine Ketones Negative (Negative) Urine Blood Negative /uL (Negative) Urine Nitrite Negative (Negative) Urine Bilirubin Negative (Negative) Urine Urobilinogen Normal mg/dL (Negative) Urine Leukocyte Esterase 1+ /uL (Negative) Urine RBC 4 /hpf (0 - 4) Urine Microscopic WBC 21 /HPF (0-5) H Urine Squamous Epithelial Cells Few /hpf (<5) Urine Bacteria None seen /hpf (None Seen) Urine Mucus Few (None Seen) Urine Glucose Normal mg/dL (Normal) Assessment/Plan Assessment/Plan Abdominal pain UTI Chronic anemia Hypokalemia Arthritis Hepatomegaly Hiatal hernia Plan 01/07/2025: IV Rocephin for UTI Protonix GI consult Pain management as needed Monitor the patient closely The rest of the management will depend on the hospital course 01/08/2025: Continue Protonix Continue Rocephin for the UTI Since the patient is still having abdominal pain, we will wait for the GI product support consultant recommendations Monitor closely Full code Advance directives discussed for 18 minutes Plan discussed with: Patient Date of Service: Jan 08, 2025 Billing Provider: BELKYS LICONA MD Common Visit Codes: [id number] INP/OBS CARE(HIGH) Secondary Visit Codes: [id number] CARE PLAN 30 MINUTES BELKYS LICONA MD Jan 08, 2025 10:19
--- NOTE | 2025-01-08 16:40 | DVHPNRES ---
Progress Note Date Seen: Jan 08, 2025 Resident Creating Document: AVELINA MENESES RESIDENT Medical Necessity Reason Pt with a Central, PICC or Fol: No Subjective Review of Systems Patient seen and examined at bedside. Patient continued to have right upper quadrant abdominal pain on palpation, no any other new complaints, no nausea, no vomiting, no diarrhea, no any other symptoms. Objective vital signs Vital Sign Date Time Temp Pulse Resp B/P (MAP) Pulse Ox O2 Delivery O2 Flow Rate FiO2 01/08/25 13:00 98.0 62 19 138/75 (96) 100 98.0 01/08/25 08:00 Room Air* 0 21 Total Intake and Output 01/07/25 01/07/25 01/08/25 15:00 23:00 07:00 Intake Total 50 ml 390 ml Balance 50 ml 390 ml medications Current Medications Medications Dose Ordered Sig/Arabella Route Start Time Stop Time Status Last Admin Dose Admin Acetaminophen/ Hydrocodone Bitart 1 tab Q4HP PRN PO 01/07/25 02:45 01/08/25 09:05 1 TAB Ondansetron HCl 4 mg Q4HP PRN IV 01/07/25 02:45 Acetaminophen 650 mg Q6HP PRN PO 01/07/25 02:45 Morphine Sulfate 2 mg Q6HPRN PRN IV 01/07/25 02:45 01/07/25 20:31 2 MG Ceftriaxone Sodium 50 ml @ 100 mls/hr DAILY@09 IV 01/07/25 09:00 01/08/25 09:04 100 MLS/HR Pantoprazole Sodium 40 mg DAILY@0600 PO 01/08/25 06:00 01/08/25 05:45 40 MG Docusate Sodium 100 mg DAILYPRN PRN PO 01/07/25 12:45 Examination General Appearance: Cooperative. Well developed. Well nourished. NAD Head Exam: Normal inspection Neck Exam: Normal inspection. Non-tender. Normal alignment Pulmonary/Respiratory: Chest non-tender. Clear bilateral breath sounds Cardiovascular/Chest: Regular rate and rhythm. No murmurs. No JVD. Peripheral Pulses: 2+ Radial (R). 2+ Radial (L). 2+ Pedal (R). 2+ Pedal (L) Abdominal Exam: Normal bowel sounds. Soft. Right upper quadrant tenderness. No hepatospenomegaly. No masses Ankle Exam: Negative ankle edema Lower extremities: Negative lower extremity edema Neuro/Mental Status: A&O x4. Coherent Thoughts/Psych: Normal thought pattern. Appropriate mood and affect. Good judgement and insight Appearance: In no acute distress Skin Exam: Normal inspection. Normal color. Warm. Dry laboratory and microbiology Laboratory Tests 01/07/25 03:33 Test 01/07/25 03:33 Range/Units Serum Glucose 106 74-106 mg/dL Problem List/Assessment/Plan Problem List/Assessment/Plan Right upper quadrant abdominal ? Musculoskeletal in origin Constipation Possible acute gastritis Hepatomegaly Hiatal hernia constipation Plan/recommendation Dr. Mullins -Plan for EGD tomorrow Continue soft diet till midnight. NPO from midnight for EGD tomorrow. -Colonoscopy in outpatient setting. -Likely right upper quadrant pain is related to musculoskeletal given its reproducible -Continue with Protonix 40 mg p.o. daily -For constipation continue Dulcolax as prescribed. -Continue to monitor labs. -We will continue following up. Plan discussed with: Patient, Other (RN) AVELINA MENESES RESIDENT Jan 08, 2025 16:40
[2025-01-09] VITALS (8 sets, daily range): BP systolic 124–166; BP diastolic 68–73; PULSE 61–74; RESP 16–98; TEMP 98.1–98.3; O2SAT 95–99
--- NOTE | 2025-01-09 05:22 | DVH ---
EXAM: XR Chest, 1 View CLINICAL INDICATION: PT GOING FOR EGD TECHNIQUE: Frontal view of the chest. COMPARISON: XY CHEST PORTABLE on DOS: 07/24/24 FINDINGS: LUNGS AND PLEURAL SPACES: Mild pulmonary congestion. No consolidation. No pneumothorax. HEART: Unremarkable. No cardiomegaly. MEDIASTINUM: Unremarkable. Normal mediastinal contour. BONES/JOINTS: Unremarkable. No acute fracture. OTHER FINDINGS: . None. . .. IMPRESSION: Mild pulmonary congestion.
[2025-01-09 06:19] LABS: INR 1.02 (0.9-1.15); Partial Thromboplastin Time 24.9 SEC (24.5-34.5); Prothrombin Time 10.8 sec (9.3-11.8)
[2025-01-09] MEDS ORDERED: NALOXONE HCL 0.4 MG/ML VIAL ONE (09:22)
[2025-01-09] MEDS ORDERED: FLUMAZENIL 0.1 MG/ML INJ 10ML MDV IV ONE (09:22)
[2025-01-09] MEDS ORDERED: SODIUM CHLORIDE LOCK 10 ML ONE (09:23)
[2025-01-09] MEDS: LIDOCAINE VISCOUS 2% 15ML UD ONE (12:18)
[2025-01-09] MEDS: fentaNYL CITRATE 100 MCG/2 ML VL ONE (12:19)
[2025-01-09] MEDS: MIDAZOLAM HCL 5 MG/ML-1ML VIAL ONE (12:19)
[2025-01-09] MEDS: diphenhdrAMINE HCL 50 MG/1 ML VL ONE (12:19)
--- NOTE | 2025-01-09 12:35 | DVHOP2 ---
Operative Report DATE OF OPERATION: 01/09/25 PROCEDURE: Upper Endoscopy with biopsy. PREOPERATIVE INDICATION: The patient is a 69 -year-old female undergoing endoscopy for right upper quadrant pain POSTOPERATIVE DIAGNOSES: 1. 1 cm sliding-type hiatal hernia with slightly irregular squamocolumnar junction no significant esophagitis 2. Mild antral gastritis otherwise normal examination of the 2nd and 3rd part of the duodenum PROCEDURE PERFORMED BY: Good Mullins GI NURSE: Isabella SCOPE: Olympus videoendoscope. ASA CLASS: 2. PREOPERATIVE MEDICATIONS: Versed 2 mg, Fentanyl 50 mcg, Benadryl 50 mg I administered moderate sedation throughout this _8_ minutes procedure. An independent trained observer pushed medications at my direction, and monitored the patient's level of consciousness and physiological status throughout. PROCEDURE IN DETAIL: After obtaining an informed consent, the patient was placed on left lateral decubitus position. The patient was then sedated with the above medications. A bite block was placed between her teeth. The endoscope was then passed through the oropharynx, into the esophagus, and through the stomach and pylorus up to the second and third part of the duodenum. The endoscope was then withdrawn. The 2nd and 3rd part of the duodenum and duodenal bulb were normal. There was good bile drainage. Duodenal biopsies were obtained The pre-pyloric area antrum and distal body showed mild gastritis with some hyperemia erythema. Gastric biopsies were obtained. On retroflexion the fundus cardia and angularis were normal. The endoscope was then withdrawn into distal esophagus. Patient had a 1 cm sliding-type hiatal hernia with slightly irregular squamocolumnar junction but no significant esophagitis GE junction biopsies were obtained. The remaining distal and proximal esophagus and oropharynx were unremarkable The patient tolerated the procedure well without difficulty. COMPLICATIONS : None SPECIMENS: Duodenal biopsies Gastric biopsies GE junction biopsies DISPOSITION: Transfer back to the floor Stable PLAN: 1. Await for biopsy result 2. Will place pt on Protonix 40 mg p.o. daily 3. Resume GI soft diet advance as tolerated 4. Outpatient follow up with GI Services for elective colonoscopy 5. Continue pain control for suspected musculoskeletal right upper quadrant pain GOOD MULLINS MD Jan 09, 2025 12:35
[2025-01-09] MEDS ORDERED: PANT40TA2 PO (14:03)
[2025-01-09] MEDS ORDERED: CEPH500C PO (14:06)
--- NOTE | 2025-01-09 15:09 | DVHDS2 ---
Discharge Summary Date of Admission Jan 07, 2025 at 02:43 Date of Discharge: Jan 09, 2025 Labs/Diagnostic Data: Laboratory Results Test 01/09/25 05:35 01/07/25 03:33 01/06/25 23:59 01/06/25 17:33 Prothrombin Time 10.8 sec (9.3-11.8) Prothrombin Time INR 1.02 (0.9-1.15) Activated Partial Thromboplast Time 24.9 SEC (24.5-34.5) White Blood Count 6.2 10^3/uL (4.4-10.8) Red Blood Count 3.80 10^6/uL (4.0-5.20) Hemoglobin 11.1 g/dL (12.2-16.2) Hematocrit 33.6 % (36.0-46.0) Mean Corpuscular Volume 88.3 fL (80.0-100.0) Mean Corpuscular Hemoglobin 29.3 pg (28.0-32.0) Mean Corpuscular Hemoglobin Concent 33.2 g/dL (32.0-36.0) Red Cell Distribution Width 14.7 % (11.8-14.3) Platelet Count 204 10^3/uL (140-450) Mean Platelet Volume 9.1 fL (6.9-10.8) Neutrophils (%) (Auto) 62.2 % (37.0-80.0) Lymphocytes (%) (Auto) 28.2 % (10.0-50.0) Monocytes (%) (Auto) 9.0 % (0.0-12.0) Eosinophils (%) (Auto) 0.0 % (0.0-7.0) Basophils (%) (Auto) 0.6 % (0.0-2.0) Neutrophils # (Auto) 3.9 10 ^3/uL (1.6-8.6) Lymphocytes # (Auto) 1.8 10 ^3/uL (0.4-5.4) Monocytes # (Auto) 0.6 10 ^3/uL (0-1.3) Eosinophils # (Auto) 0 10 ^3/uL (0-0.8) Basophils # (Auto) 0 10 ^3/uL (0-0.2) Nucleated Red Blood Cells 0.2 % Sodium Level 139 mmol/L (136-145) Potassium Level 3.5 mmol/L (3.5-5.1) Chloride Level 102 mmol/L (98-107) Carbon Dioxide Level 30 mmol/L (20-31) Anion Gap 7 (5-15) Blood Urea Nitrogen 12 mg/dL (9-23) Creatinine 0.66 mg/dL (0.550-1.02) Glomerular Filtration Rate Calc 96 mL/min (>90) BUN/Creatinine Ratio 18.2 (10.0-20.0) Serum Glucose 106 mg/dL (74-106) Calcium Level 9.9 mg/dL (8.7-10.4) Total Bilirubin 0.7 mg/dL (0.2-1.0) Aspartate Amino Transferase (AST) 25 U/L (13-40) Alanine Aminotransferase (ALT) 36 U/L (7-40) Alkaline Phosphatase 134 U/L (46-116) Total Protein 6.2 g/dL (5.7-8.2) Albumin 4.2 g/dL (3.2-4.8) Urine Color Yellow (Yellow) Urine Clarity Clear (Clear) Urine pH 7.0 (5.0-9.0) Urine Specific [place] 1.021 (1.001-1.035) Urine Protein Negative (Negative) Urine Ketones Negative (Negative) Urine Blood Negative /uL (Negative) Urine Nitrite Negative (Negative) Urine Bilirubin Negative (Negative) Urine Urobilinogen Normal mg/dL (Negative) Urine Leukocyte Esterase 1+ /uL (Negative) Urine RBC 4 /hpf (0 - 4) Urine Microscopic WBC 21 /HPF (0-5) Urine Squamous Epithelial Cells Few /hpf (<5) Urine Bacteria None seen /hpf (None Seen) Urine Mucus Few (None Seen) Urine Glucose Normal mg/dL (Normal) Lipase 40 U/L (12-53) Other Laboratory Tests 01/07/25 03:33 Brief Hx & Hospital Course: 69-year-old female who was admitted for right upper quadrant abdominal pain Ultrasound of the gallbladder was negative She has hepatic steatosis CT scan of the abdomen showed fatty infiltration of the liver and a hypodensity 9 mm in the right lobe of the liver indicating possible hepatic cyst She has a tiny fat containing umbilical hernia She was constipated She has a 6 mm nodule in the right middle lobe of the lung with atelectasis 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 daily Discontinue NSAIDs and aspirin She also has a UTI Final diagnoses: Acute gastritis and hiatal hernia most likely due to NSAIDs Right upper quadrant abdominal pain most likely due to musculoskeletal pain Hepatomegaly UTI Chronic anemia Hypokalemia Arthritis For the UTI she will be taking cephalexin for 5 days Follow up with the primary care physician as soon as possible Condition at Discharge: Stable Final Diagnosis/Problems List Acute gastritis and hiatal hernia most likely due to NSAIDs Right upper quadrant abdominal pain most likely due to musculoskeletal pain Hepatomegaly UTI Chronic anemia Hypokalemia Arthritis Discharge Disposition: Home SNF Discharge Will this Physician continue t: No Discharge Instruct/Medications Diet: Cardiac 2g Na,low cholest Activity: No Restrictions, As Tolerated Follow Up/Referral: PCP as soon as possible Medications: Protonix 40 mg daily Cephalexin 500 mg 3 times a day for 5 days Discontinue all NSAIDs Resume other home medications Discharge Statement: "Patient was advised to return to the ER or call 911 if any headaches, dizziness, shortness of breath, chest pain, abdominal pain, bleeding, fevers, or worsening of medical condition. Patient was counseled about treatment plan, medications, possible side effects, patientverbalized understanding. All questions were answered to the best of my ability. This discharge took greater then 30 minutes in planning, reviewing documentation, counseling the patient, and discussing with other team members." ASSESSMENT ASSESSMENT Assessment Acute gastritis and hiatal hernia most likely due to NSAIDs Right upper quadrant abdominal pain most likely due to musculoskeletal pain Hepatomegaly UTI Chronic anemia Hypokalemia Arthritis Date of Service: Jan 09, 2025 Billing Provider: BELKYS LICONA MD Common Visit Codes: [id number] DISCH DAY >30min BELKYS LICONA MD Jan 09, 2025 15:09
== END 2025-01-09 16:15 | disposition home or self-care (01) | DRG 392 ==
LOC: ER 16:43 → OVERFLOW 01-07 02:43 → EAST 01-07 15:40 → OVERFLOW 01-09 12:57 → EAST 01-09 13:03
PROVIDERS: ADMIT Nurse Practitioner; ATTEND Internal Medicine Geriatric Medicine
PROC: 0DB68ZX Excision of Stomach, Via Natural or Artificial Opening Endoscopic, Diagnostic (ICD-10-PCS; 2025-01-09)
PROC: 0DB48ZX Excision of Esophagogastric Junction, Via Natural or Artificial Opening Endoscopic, Diagnostic (ICD-10-PCS; 2025-01-09)
PROC: 0DB98ZX Excision of Duodenum, Via Natural or Artificial Opening Endoscopic, Diagnostic (ICD-10-PCS; principal; 2025-01-09 11:45)
DX: K29.00 Acute gastritis without bleeding (principal); N39.0 Urinary tract infection, site not specified; J98.11 Atelectasis; T39.395A Adverse effect of other nonsteroidal anti-inflammatory drugs [NSAID], initial encounter; K59.00 Constipation, unspecified; D64.9 Anemia, unspecified; E87.6 Hypokalemia; K44.9 Diaphragmatic hernia without obstruction or gangrene; R16.0 Hepatomegaly, not elsewhere classified; K76.0 Fatty (change of) liver, not elsewhere classified; J45.909 Unspecified asthma, uncomplicated; Y92.89 Other specified places as the place of occurrence of the external cause; Z79.899 Other long term (current) drug therapy
CPT/HCPCS: 36415; 71045; 74176; 76705; 80053; 81001; 83690; 85025; 85610; 85730; 86850; 86900; 86901; G0378; J2250; J2405; J2470

== ENCOUNTER → 2025-02-06 | Outpatient (CLI) | payer MEDICARE ==
[~2025-02-06] MED LIST changes: +CEPH500C PO; -MELO15TA29 PO; -NAPR-746 PO; +PANT40TA2 PO; -PRED20TA2 PO
[2025-02-06 12:54] LABS: Basophils # (auto) 0 10 ^3/uL (0-0.2); Basophils % (auto) 0.4 % (0.0-2.0); Eosinophils # (auto) 0 10 ^3/uL (0-0.8); Hematocrit 35.7 % (36.0-46.0); Hemoglobin 11.6 g/dL (12.2-16.2); Lymphocytes % (auto) 26.5 % (10.0-50.0); Mean Corpuscular Hemoglobin 28.7 pg (28.0-32.0); Mean Corpuscular Hgb Conc. 32.5 g/dL (32.0-36.0); Mean Corpuscular Volume 88.4 fL (80.0-100.0); Monocytes # (auto) 0.5 10 ^3/uL (0-1.3); Monocytes % (auto) 6.7 % (0.0-12.0); Neutrophils % (auto) 66.4 % (37.0-80.0); Platelet Count (auto) 265 10^3/uL (140-450); Red Blood Cells 4.03 10^6/uL (4.0-5.20); Red Cell Distribution Width 14.6 % (11.8-14.3); White Blood Cell 7.6 10^3/uL (4.4-10.8)
[2025-02-06 13:33] LABS: Creatinine, Urine 217.23 mg/dL (30.0-125.0)
== END | disposition home or self-care (01) ==
LOC: LAB 12:19
PROVIDERS: ATTEND Internal Medicine
DX: D64.9 Anemia, unspecified (principal)
CPT/HCPCS: 36415; 82043; 82570; 85025

== ENCOUNTER 2025-05-10 14:52 | Outpatient (CLI) | payer MEDICARE ==
[2025-05-10 15:53] LABS: % Iron Saturation 13.9 % (15-50)
[2025-05-10 15:56] LABS: Ferritin 13.1 ng/mL (10-291)
[2025-05-10 15:58] LABS: Basophils # (auto) 0 10 ^3/uL (0-0.2); Basophils % (auto) 0.6 % (0.0-2.0); Eosinophils # (auto) 0 10 ^3/uL (0-0.8); Eosinophils % (auto) 0.3 % (0.0-7.0); Hematocrit 35.2 % (36.0-46.0); Hemoglobin 11.7 g/dL (12.2-16.2); Lymphocytes # (auto) 2.6 10 ^3/uL (0.4-5.4); Lymphocytes % (auto) 36.2 % (10.0-50.0); Mean Corpuscular Hemoglobin 30.3 pg (28.0-32.0); Mean Corpuscular Hgb Conc. 33.3 g/dL (32.0-36.0); Mean Corpuscular Volume 90.9 fL (80.0-100.0); Monocytes # (auto) 0.7 10 ^3/uL (0-1.3); Neutrophils # (auto) 3.8 10 ^3/uL (1.6-8.6); Neutrophils % (auto) 52.9 % (37.0-80.0); Platelet Count (auto) 241 10^3/uL (140-450); Red Blood Cells 3.87 10^6/uL (4.0-5.20); Red Cell Distribution Width 15.5 % (11.8-14.3); White Blood Cell 7.1 10^3/uL (4.4-10.8)
[2025-05-13 10:42] LABS: Folate (Folic Acid) 17.75 ng/mL (>5.38)
== END 2025-05-10 17:00 | disposition home or self-care (01) ==
LOC: LAB 14:52
PROVIDERS: ATTEND Internal Medicine
DX: D64.9 Anemia, unspecified (principal)
CPT/HCPCS: 36415; 82607; 82728; 82746; 83540; 83550; 85025

== ENCOUNTER 2025-07-22 14:21 | Outpatient (CLI) | payer MEDICARE ==
[2025-07-22 14:48] LABS: Hematocrit 36.4 % (36.0-46.0); Hemoglobin 12.2 g/dL (12.2-16.2); Mean Corpuscular Hemoglobin 31.9 pg (28.0-32.0); Mean Corpuscular Volume 95.3 fL (80.0-100.0); Nucleated Red Blood Cells % 0.2 %
[2025-07-22 15:17] LABS: Potassium 3.7 mmol/L (3.5-5.1)
[2025-07-22 15:18] LABS: Anion Gap 10 (5-15); Carbon Dioxide 26 mmol/L (20-31)
[2025-07-22 15:19] LABS: Calcium 8.9 mg/dL (8.7-10.4)
[2025-07-22 15:20] LABS: Chloride 112 mmol/L (98-107); Sodium 148 mmol/L (136-145)
[2025-07-22 15:24] LABS: BUN/Creatinine Ratio 30.0 (10.0-20.0); Blood Urea Nitrogen 27 mg/dL (9-23); Glucose 121 mg/dL (74-106)
== END 2025-07-22 17:00 | disposition home or self-care (01) ==
LOC: LAB 14:21
PROVIDERS: ATTEND Internal Medicine
DX: I10 Essential (primary) hypertension (principal); D64.9 Anemia, unspecified; Z79.899 Other long term (current) drug therapy
CPT/HCPCS: 36415; 80048; 83036; 85025

== ENCOUNTER 2025-08-28 15:04 | Outpatient (CLI) | payer MEDICARE ==
[2025-08-28 15:56] LABS: Carbon Dioxide 29 mmol/L (20-31)
[2025-08-28 15:57] LABS: Calcium 9.1 mg/dL (8.7-10.4)
[2025-08-28 16:01] LABS: BUN/Creatinine Ratio 15.7 (10.0-20.0); Blood Urea Nitrogen 11 mg/dL (9-23); Glucose 96 mg/dL (74-106)
[2025-08-28 16:02] LABS: Magnesium 2.0 mg/dL (1.6-2.6)
[2025-08-28 16:04] LABS: Anion Gap 10 (5-15); Chloride 104 mmol/L (98-107); Creatine Kinase IFCC 156 U/L (34-145); Potassium 3.4 mmol/L (3.5-5.1); Sodium 143 mmol/L (136-145)
== END 2025-08-28 17:00 | disposition home or self-care (01) ==
LOC: LAB 15:04
PROVIDERS: ATTEND Internal Medicine
DX: E87.0 Hyperosmolality and hypernatremia (principal); R73.03 Prediabetes; M25.351 Other instability, right hip
CPT/HCPCS: 36415; 80048; 82550; 83735; 86431

== ENCOUNTER 2025-09-10 11:58 | Outpatient (CLI) | payer MEDICARE ==
[2025-09-10 12:50] LABS: Anion Gap 11 (5-15); Calcium 9.2 mg/dL (8.7-10.4); Carbon Dioxide 28 mmol/L (20-31); Chloride 104 mmol/L (98-107); Sodium 143 mmol/L (136-145)
[2025-09-10 12:56] LABS: BUN/Creatinine Ratio 16.4 (10.0-20.0); Blood Urea Nitrogen 11 mg/dL (9-23); Glucose 106 mg/dL (74-106)
[2025-09-10 12:57] LABS: Potassium 3.4 mmol/L (3.5-5.1)
== END 2025-09-10 17:00 | disposition home or self-care (01) ==
LOC: LAB 11:58
PROVIDERS: ATTEND Internal Medicine
DX: E87.5 Hyperkalemia (principal)
CPT/HCPCS: 36415; 80048

== ENCOUNTER 2025-09-25 15:03 | Outpatient (CLI) | payer MEDICARE ==
[2025-09-25 15:44] LABS: Potassium 3.7 mmol/L (3.5-5.1); Sodium 141 mmol/L (136-145)
[2025-09-25 15:45] LABS: Anion Gap 6 (5-15); Calcium 9.7 mg/dL (8.7-10.4); Carbon Dioxide 28 mmol/L (20-31)
[2025-09-25 15:47] LABS: Chloride 107 mmol/L (98-107)
[2025-09-25 15:50] LABS: BUN/Creatinine Ratio 14.5 (10.0-20.0); Blood Urea Nitrogen 11 mg/dL (9-23)
[2025-09-25 15:56] LABS: Glucose 125 mg/dL (74-106)
== END 2025-09-25 17:00 | disposition home or self-care (01) ==
LOC: LAB 15:03
PROVIDERS: ATTEND Internal Medicine
DX: E87.6 Hypokalemia (principal)
CPT/HCPCS: 36415; 80048

== ENCOUNTER 2025-10-14 06:42 | Inpatient (IN) | payer MEDICARE ==
[2025-10-10 11:02] LABS: Hematocrit 36.8 % (36.0-46.0); Hemoglobin 12.4 g/dL (12.2-16.2); Mean Corpuscular Hemoglobin 30.9 pg (28.0-32.0); Mean Corpuscular Volume 91.9 fL (80.0-100.0); Nucleated Red Blood Cells % 0.1 %
[2025-10-10 11:09] LABS: Urine Protein, UAD TRACE (Negative)
[2025-10-10 11:19] LABS: INR 1.01 (0.9-1.15); Partial Thromboplastin Time 25.1 SEC (24.5-34.5); Prothrombin Time 10.7 sec (9.3-11.8)
[2025-10-10 12:13] LABS: Alanine Aminotransferase 37 U/L (7-40); Alkaline Phosphatase 103 U/L (46-116); Anion Gap 10 (5-15); BUN/Creatinine Ratio 17.4 (10.0-20.0); Blood Urea Nitrogen 12 mg/dL (9-23); Calcium 9.4 mg/dL (8.7-10.4); Carbon Dioxide 28 mmol/L (20-31); Chloride 104 mmol/L (98-107); Potassium 4.1 mmol/L (3.5-5.1); Sodium 142 mmol/L (136-145); Total Protein 6.6 g/dL (5.7-8.2)
[2025-10-10 12:14] LABS: Albumin 4.2 g/dL (3.2-4.8); Bilirubin, Total 0.8 mg/dL (0.2-1.0)
[2025-10-10 12:15] LABS: Glucose 114 mg/dL (74-106)
[~2025-10-14] VITALS: Ht 157.5 cm; Wt 67.8 kg
[~2025-10-14 06:42] MED LIST changes: -ACET-1881 PO; -CEPH500C PO; -ERGO1CAP12 PO; -GABA-1250 PO; -IBUP-1456 PO; -PANT40TA2 PO
[2025-10-14] MEDS ORDERED: MORPHINE SULF PF 5 MG/10 ML VIAL ONE (08:36)
[2025-10-14] MEDS ORDERED: fentaNYL CITRATE 100 MCG/2 ML VL ONE (08:36)
[2025-10-14] MEDS ORDERED: KETAMINE 50mg/ML 1ml syringe ONE (08:36)
[2025-10-14] MEDS ORDERED: GLYCOPYRROLATE 0.2 MG/ML 1ML VIAL ONE (08:36)
[2025-10-14] MEDS ORDERED: PROPOFOL 10 MG/ML 20 ML IV ONE (08:36)
[2025-10-14] MEDS ORDERED: ONDANSETRON HCL 4 MG/2 ML VIAL ONE (08:36)
[2025-10-14] MEDS ORDERED: MIDAZOLAM HCL 2MG/2ML 2ml VIAL (1mg/ml) ONE (08:36)
[2025-10-14] MEDS: ACETAMINOPHEN IV 1000 MG/100ML (10MG/ML) IV ONE (09:24)
[2025-10-14] MEDS: PREGABALIN CAPSULE 75 MG CAP PO ONE (09:24)
[2025-10-14] MEDS: CELECOXIB 100 MG CAP PO ONE (09:24)
[2025-10-14] MEDS ORDERED: LIDOCAINE HCL 100 MG/5ML (2%) SYRG INJ IV ONE (10:15)
[2025-10-14] MEDS ORDERED: HYDROmorphone HCL 2 MG/ML VL/or syr ONE (10:15)
[2025-10-14] MEDS: CEFEPIME 1GM/50ML 50 ML IV ONE (11:10)
[2025-10-14] MEDS ORDERED: MEPERIDINE HCL (25 MG/ML) 1ML VIAL ONE (11:11)
[2025-10-14] MEDS: ceFAZolin 2 GM/D5W50ml 50 ML IV ONE (11:15)
[2025-10-14] MEDS: TRANEXAMIC ACID 20 ML ONE (11:21)
[2025-10-14] MEDS: KETOROLAC TROMETH 30 MG/ML 1ML VIAL ONE (11:22)
[2025-10-14] MEDS: MORPHINE SULF PF 5 MG/10 ML VIAL ONE (11:22)
[2025-10-14] MEDS: VANCOMYCIN HCL 1000 MG VL ONE (11:22)
[2025-10-14] MEDS: BUPIVACAINE W/ EPINEPH 0.25% INJ 50ML MDV ONE (11:22)
--- NOTE | 2025-10-14 11:49 | DVHOP2 ---
Discharge Orders Discharge Orders DISCHARGE WHEN CRITERIA MET DISCHARGE WHEN CRITERIA MET. Operative Rep- Outpatient Operative Report PRE-OP DIAGNOSIS: Left knee DJD PRE-OP PAIN LEVEL (0-10): 10 POST-OP DIAGNOSIS: same POST-OP PAIN LEVEL (0-10): unclear [place] protocol followed: Yes ESTIMATED BLOOD LOSS: 25 cc PROCEDURE: Left total knee arthroplasty Computer navigation left total knee arthroplasty Application of negative pressure wound VAC SURGEON/RULING MACHINE SET UP OPERATOR: Jatinder Loaiza NP ANESTHESIA: MD ANESTHESIOLOGIST: General INFORMED CONSENT: Informed Consent: Discussed all inherent risks, complications, and alternatives treatments with the patient. Patient has agreed to proceed with the procedure. I have reviewed all pre-operative assessments including Labs, EKGs, and radiographic images that has been performed. Patient is an appropriate candidate for the outpatient surgical center procedure. The patient is educated on the risks and benefits of surgical and nonsurgical treatment of the patient has ongoing pain of the left knee the patient understa nds the risks and benefits of surgical and nonsurgical treatment of the left lower extremity she understands the risks associated with the total knee arthroplasty. An extensive discussion with the patient regarding operative and nonoperative indications of the patient opted for surgical treatment of the left lower extremity The patient is seen in the preoperative holding of the left lower extremity was marked the patient was brought to operative suite general anesthesia was then induced time-out was called to hospital protocol the left lower extremity was prepped and draped in the standard fashion Ancef was given for infection pr ophylaxis TXA was given for bleeding prophylaxis based on these parameters the patient was educated of the risks and benefits of the left lower extremity was prepped and draped in the standard fashion Ancef was given for infection prophylaxis incision was made through skin subcu tissue down the Reamer VMO quad arthrotomy of the fat pad was then carefully removed with the anterior portion of the patellar tendon once I was then done the medial release was then created the anterior horn of the mid anterior medial and lateral meniscus were then transected along with the anterior cruciate ligament once it was then transected in the appropriate manner attention was then turned to the proximal tibia with a 2 degree slope with mechanical and kinematic access being checked in the appropriate manner to make up for MC poly of the proximal tibia cut was then completed once it was completed with a 2 to a 2 mm cut off the medial side once it was then completed in the appropriate manner the computer navigation was then completed once it was then done the distal cut was then completed in the appropriate manner with a 3 of flexion with a candidate can we can hematocrit mechanical axis once it was then completed in the appropriate manner of the cut was then completed with a distal femoral cut the 451 sizing block was then used once it was then used the 5 in 1 sizing block was then appropriately used in the appropriate manner once it was then completed with the 5 and once it was a of the sizing block the 4 in 1 cutting block was then used there was then prepped with a size 3 tibial base plate of the rotation was then marked with a spacer block with a of the 9 mm spacer block off of the medial and lateral meniscus were carefully removed a size 3 with a 9 mm MC poly and a 5 femoral component was then rotated was then marked was punched and killed all of the trial components were prepped of the knee was irrigated copiously with saline and patellar neurectomy was then completed size 3 tibial base plate was then placed in the position a size 9 MC poly was placed along with a size 5 femoral component all the knee was irrigated customized saline with Betadine followed by irrigation follow up a 5. Ethibond followed by 0 Vicryl followed by 1. Stratafix followed by 0 Vicryl followed by 2-0 Monocryl followed by kamini and negative pressure wound VAC the patient will be weight-bearing as tolerated in the left lower extremity PT OT out of bed daily follow up in 2 weeks' time JATINDER HUITRON MD Oct 14, 2025 11:49
[2025-10-14 12:04] VITALS: PULSE 80; RESP 12; O2SAT 97
[2025-10-14] MEDS ORDERED: ONDANSETRON HCL 4 MG/2 ML VIAL IV PRN (12:15)
[2025-10-14] MEDS ORDERED: NITROGLYCERIN 0.4 MG SL TAB SL PRN (12:15)
[2025-10-14] MEDS ORDERED: MORPHINE SULFATE INJ 2 MG/ml SYRG IV PRN (12:15)
[2025-10-14] MEDS ORDERED: ceFAZolin 1GM/50ML 50 ML IV SCH (12:45)
[2025-10-14 12:58] VITALS: PULSE 93; RESP 11; O2SAT 96
[2025-10-14] MEDS: HYDROmorphone HCL 2 MG/ML VL/or syr IV PRN ×2 (12:59→13:13)
[2025-10-14 15:38] VITALS: BP 124/61; PULSE 93; RESP 18; TEMP 98; O2SAT 98
[2025-10-14] MEDS ORDERED: POTA-36 PO (16:19)
[2025-10-14] MEDS ORDERED: ASPI-498 PO (16:19)
[2025-10-14] MEDS ORDERED: MAGN400T40 PO (16:19)
[2025-10-14] MEDS ORDERED: DOCU-94 PO (16:19)
[2025-10-14 17:00] VITALS: BP 123/67; PULSE 84; RESP 16; TEMP 97.7; O2SAT 96
[2025-10-14] MEDS: ceFAZolin 1GM/50ML 50 ML IV SCH (18:17)
--- NOTE | 2025-10-14 19:03 | DVHINCON2 ---
Date Seen: Oct 14, [address] HUITRON Family History: Arthritis G8 MOTHER, Allergies: Coded Allergies: NO KNOWN ALLERGIES (Unverified , 07/19/24) Home Meds Reported Medications Docusate Sodium (Colace) 100 Mg Cap, 1 CAP PO BID, #30 CAP 10/14/25 Magnesium Oxide (MAGNESIUM OXIDE) 400 Mg Tab, 1 TAB PO DAILY, #30 TAB 5 Refills 10/14/25 Potassium Chloride (POTASSIUM CHLORIDE CR) 10 Meq Tb, 1 TAB PO DAILY, #30 TAB 5 Refills 10/14/25 Aspirin (ASPIRIN 81) 81 Mg Tab, 81 MG PO, TAB 10/14/25 Tramadol Hcl (Tramadol Hcl) 50 Mg Tab, 50 MG PO DAILY for pain, MG 07/20/24 Current Medications Current Medications Medications (Trade) Dose Ordered Sig/Arabella Route PRN Reason Start Time Stop Time Status Last Admin Ondansetron HCl (Zofran) 4 mg ONCE PRN IV NAUSEA / VOMITING 10/14/25 12:15 10/14/25 12:16 DC Hydromorphone HCl (Dilaudid Injection) 0.5 mg Q10M PRN IV SEVERE PAIN (7-10 PAIN SCALE) 10/14/25 12:15 10/14/25 12:56 DC 10/14/25 12:59 Nitroglycerin (Ntrostat Sublingual) 0.4 mg Q5MINP PRN SL FOR CHEST PAIN 10/14/25 12:15 Morphine Sulfate 2 mg Q30M PRN IV FOR CHEST PAIN 10/14/25 12:15 Cefazolin Sodium 50 ml @ 50 mls/hr Q8H IV 10/14/25 12:45 10/14/25 12:50 DC Acetaminophen/ Hydrocodone Bitart ([place] 5/325MG Tab) 1 tab Q4HP PRN PO MODERATE PAIN (4-6 PAIN SCALE) 10/14/25 12:45 Acetaminophen (Tylenol Tablet) 650 mg Q4HP PRN PO MILD PAIN (1-3 PAIN SCALE) 10/14/25 12:45 Enoxaparin Sodium (Lovenox) 40 mg DAILY SC 10/15/25 10:00 Cefazolin Sodium 50 ml @ 50 mls/hr Q8H IV 10/14/25 19:15 10/15/25 12:14 10/14/25 18:17 Hydromorphone HCl (Dilaudid Injection) 0.5 mg Q10M PRN IV SEVERE PAIN (7-10 PAIN SCALE) 10/14/25 13:15 10/14/25 13:46 DC 10/14/25 13:13 Vital Signs Vital Signs Date Time Temp Pulse Resp B/P (MAP) Pulse Ox O2 Delivery O2 Flow Rate FiO2 10/14/25 17:00 97.7 84 16 123/67 (85) 96 97.7 10/14/25 15:38 Nasal Cannula* 2 28 Labs/Diagnostic Data Labs Test 10/10/25 10:50 Range/Units White Blood Count 4.9 4.4-10.8 10^3/uL Red Blood Count 4.00 4.0-5.20 10^6/uL Hemoglobin 12.4 12.2-16.2 g/dL Hematocrit 36.8 36.0-46.0 % Mean Corpuscular Volume 91.9 80.0-100.0 fL Mean Corpuscular Hemoglobin 30.9 28.0-32.0 pg Mean Corpuscular Hemoglobin Concent 33.6 32.0-36.0 g/dL Red Cell Distribution Width 13.0 11.8-14.3 % Platelet Count 244 140-450 10^3/uL Mean Platelet Volume 9.4 6.9-10.8 fL Neutrophils (%) (Auto) 46.7 37.0-80.0 % Lymphocytes (%) (Auto) 40.3 10.0-50.0 % Monocytes (%) (Auto) 12.5 H 0.0-12.0 % Eosinophils (%) (Auto) 0.0 0.0-7.0 % Basophils (%) (Auto) 0.5 0.0-2.0 % Neutrophils # (Auto) 2.3 1.6-8.6 10 ^3/uL Lymphocytes # (Auto) 2.0 0.4-5.4 10 ^3/uL Monocytes # (Auto) 0.6 0-1.3 10 ^3/uL Eosinophils # (Auto) 0 0-0.8 10 ^3/uL Basophils # (Auto) 0 0-0.2 10 ^3/uL Nucleated Red Blood Cells 0.1 % Prothrombin Time 10.7 9.3-11.8 sec Prothrombin Time INR 1.01 0.9-1.15 Activated Partial Thromboplast Time 25.1 24.5-34.5 SEC Urine Color Yellow Yellow Urine Clarity Turbid H Clear Urine pH 5.5 5.0-9.0 Urine Specific [place] 1.030 1.001-1.035 Urine Protein Trace H Negative Urine Ketones 1+ H Negative Urine Blood Negative Negative /uL Urine Nitrite Negative Negative Urine Bilirubin Negative Negative Urine Urobilinogen 2 H Negative mg/dL Urine Leukocyte Esterase 2+ Negative /uL Urine RBC 18 0 - 4 /hpf Urine Microscopic WBC 24 H 0-5 /HPF Urine Squamous Epithelial Cells Few <5 /hpf Urine Bacteria None seen None Seen /hpf Urine Hyaline Casts Few 0 - 2 /lpf Urine Mucus Few None Seen Urine Glucose Normal Normal mg/dL Sodium Level 142 136-145 mmol/L Potassium Level 4.1 3.5-5.1 mmol/L Chloride Level 104 98-107 mmol/L Carbon Dioxide Level 28 20-31 mmol/L Anion Gap 10 5-15 Blood Urea Nitrogen 12 9-23 mg/dL Creatinine 0.69 0.550-1.02 mg/dL Glomerular Filtration Rate Calc 95 >90 mL/min BUN/Creatinine Ratio 17.4 10.0-20.0 Serum Glucose 114 H 74-106 mg/dL Calcium Level 9.4 8.7-10.4 mg/dL Total Bilirubin 0.8 0.2-1.0 mg/dL Aspartate Amino Transferase (AST) 32 13-40 U/L Alanine Aminotransferase (ALT) 37 7-40 U/L Alkaline Phosphatase 103 46-116 U/L Total Protein 6.6 5.7-8.2 g/dL Albumin 4.2 3.2-4.8 g/dL Assessment SEE DICTATED NOTE Plan discussed with: Patient Date of Service: Oct 14, 2025 Billing Provider: BARBARA PETERSON MD Common Visit Codes: [id number] INP/OBS CARE (HIGH) Secondary Visit Codes: [id number] CARE PLAN 30 MINUTES BARBARA PETERSON MD Oct 14, 2025 19:03
--- NOTE | 2025-10-14 19:16 | DVHINCON2 ---
INTERNAL MEDICINE CONSULT HISTORY OF PRESENT ILLNESS: The patient is a 70-year-old lady who was admitted after she underwent surgery on the left knee for DJD of the knee. The patient denies any significant pain. No chest pain. No shortness of breath. No nausea or vomiting. REVIEW OF SYSTEMS: Review of rest systems is otherwise currently negative. PAST MEDICAL HISTORY: No significant illnesses in the past except for chronic pain. MEDICATIONS: She takes tramadol. ALLERGIES: No known drug allergies. SOCIAL HISTORY: Denies smoking or alcohol. Lives with her nephew. FAMILY HISTORY: Negative. PHYSICAL EXAMINATION: GENERAL: The patient is awake, alert. VITAL SIGNS: Temperature of 97.7, pulse 84 per minute, blood pressure 123/67. SHEENT: Unremarkable. NECK: There is no JVD. No pedal edema. LUNGS: Equal bilaterally. No added sounds. CARDIOVASCULAR: S1 and S2 is regular without murmurs. ABDOMEN: Soft. There is no organomegaly. NEUROLOGIC: Nonfocal. MUSCULOSKELETAL: The left knee is currently in the dressing. ASSESSMENT AND PLAN: * Urinary tract infection for which the patient will be placed on IV Rocephin and a urine culture will be obtained. * Status post left knee surgery for degenerative joint disease of the knee for which she will be placed on pain medication and receive physical therapy. * Advance care planning, the patient's full code-Time spent was 18 minutes. MD ANDRES Pearce/CRISTINA TID: [id number] RECEIPT: [id number] MTDD
[2025-10-14 20:00] VITALS: RESP 18
[2025-10-14 21:00] VITALS: BP 121/66; PULSE 69; RESP 18; TEMP 97.7; O2SAT 97
[2025-10-15] VITALS (8 sets, daily range): BP systolic 125–166; BP diastolic 55–87; PULSE 59–77; RESP 16–18; TEMP 97.8–98.7; O2SAT 97–100
[2025-10-15] MEDS: HYDROcodone-ACET 5/325MG TAB PO PRN (00:03)
[2025-10-15 06:12] LABS: Hematocrit 32.2 % (36.0-46.0); Hemoglobin 10.7 g/dL (12.2-16.2)
[2025-10-15] MEDS: ENOXAPARIN SOD 40 MG/0.4 ML SYRINGE SC SCH (09:27)
[2025-10-15] MEDS: ACETAMINOPHEN 325 MG TAB PO PRN (10:35)
--- NOTE | 2025-10-15 11:30 | DVHPN2 ---
Progress Note Date Seen: Oct 15, 2025 Medical Necessity Reason Pt with a Central, PICC or Fol: No Subjective Patient reports: No new complaints Review of Systems: HEENT:Normal, CVS:Normal, RESPIRATORY:Normal, GI:Normal, :Normal, MSK:Normal, NEURO:Normal Objective vital signs Vital Sign Date Time Temp Pulse Resp B/P (MAP) Pulse Ox O2 Delivery O2 Flow Rate FiO2 10/15/25 08:49 98.2 66 16 126/80 (95) 98 98.2 10/15/25 08:00 Nasal Cannula* 2 28 Total Intake and Output 10/14/25 10/14/25 10/15/25 15:00 23:00 07:00 Intake Total 220 ml 50 ml 300 ml Balance 220 ml 50 ml 300 ml medications Current Medications Medications Dose Ordered Sig/Arabella Route Start Time Stop Time Status Last Admin Dose Admin Nitroglycerin 0.4 mg Q5MINP PRN SL 10/14/25 12:15 Morphine Sulfate 2 mg Q30M PRN IV 10/14/25 12:15 Acetaminophen/ Hydrocodone Bitart 1 tab Q4HP PRN PO 10/14/25 12:45 10/15/25 09:27 1 TAB Acetaminophen 650 mg Q4HP PRN PO 10/14/25 12:45 10/15/25 10:35 650 MG Enoxaparin Sodium 40 mg DAILY SC 10/15/25 10:00 10/15/25 09:27 40 MG Cefazolin Sodium 50 ml @ 50 mls/hr Q8H IV 10/14/25 19:15 10/15/25 12:14 10/15/25 10:35 50 MLS/HR Examination: GENERAL:Normal, HEENT:Normal, NECK:Normal, LUNGS:Normal, CVS:Normal, ABDOMEN:Normal, MSK:Normal, MSK:Abnormal (left knee dressing), SKIN:Normal, NEURO:Normal, :Normal laboratory and microbiology Laboratory Tests 10/15/25 05:15 10/10/25 10:50 Test 10/10/25 10:50 Range/Units Serum Glucose 114 H 74-106 mg/dL Problem List/Assessment/Plan Problem List/Assessment/Plan * Urinary tract infection for which the patient will be placed on IV ancef and a urine culture will be obtained. * Status post left knee surgery for degenerative joint disease of the knee for which she will be placed on pain medication and receive physical therapy. * Advance care planning, the patient's full code-Time spent was 18 minutes. 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
[2025-10-15] MEDS: MORPHINE SULFATE INJ 2 MG/ml SYRG IV PRN (12:48)
--- NOTE | 2025-10-15 14:31 | DVH ---
EXAM: XY L KNEE 2V XRAY CLINICAL INDICATION: s/p left total knee TECHNIQUE: XY L KNEE 2V XRAY Comparison: XY L KNEE 3V XRAY on DOS: 12/20/24, XY R KNEE 3V XRAY on DOS: 12/20/24, XY R KNEE 3V XRAY on DOS: 11/20/24, XY L KNEE 3V XRAY on DOS: 08/17/24, XY R KNEE 3V XRAY on DOS: 08/17/24 FINDINGS/IMPRESSION: Patient is status post total left knee arthroplasty. There is normal alignment. Postsurgical changes noted. N FACTORS SPECIALIST YINA
[2025-10-16 01:00] VITALS: BP 158/69; PULSE 71; RESP 18; TEMP 98; O2SAT 96
[2025-10-16 05:00] VITALS: BP 151/72; PULSE 69; RESP 17; TEMP 98; O2SAT 94
[2025-10-16 06:02] LABS: Hematocrit 31.9 % (36.0-46.0); Hemoglobin 10.9 g/dL (12.2-16.2)
--- NOTE | 2025-10-16 07:41 | DVHPN2 ---
Progress Note Date Seen: Oct 16, 2025 Medical Necessity Reason Pt with a Central, PICC or Fol: No Subjective Patient reports: Feels worse (increased pain as expected ) Objective vital signs Vital Sign Date Time Temp Pulse Resp B/P (MAP) Pulse Ox O2 Delivery O2 Flow Rate FiO2 10/16/25 06:42 60 18 145/68 10/16/25 05:00 98.0 94 98.0 10/15/25 20:00 Nasal Cannula* 2 28 Total Intake and Output 10/15/25 10/15/25 10/16/25 15:00 23:00 07:00 Intake Total 600 ml 600 ml 436 ml Output Total 500 ml Balance 600 ml 100 ml 436 ml medications Current Medications Medications Dose Ordered Sig/Arabella Route Start Time Stop Time Status Last Admin Dose Admin Nitroglycerin 0.4 mg Q5MINP PRN SL 10/14/25 12:15 Morphine Sulfate 2 mg Q30M PRN IV 10/14/25 12:15 Acetaminophen/ Hydrocodone Bitart 1 tab Q4HP PRN PO 10/14/25 12:45 10/15/25 20:55 1 TAB Acetaminophen 650 mg Q4HP PRN PO 10/14/25 12:45 10/15/25 10:35 650 MG Enoxaparin Sodium 40 mg DAILY SC 10/15/25 10:00 10/15/25 09:27 40 MG Morphine Sulfate 2 mg Q4HPRN PRN IV 10/15/25 11:30 10/16/25 06:12 2 MG Examination: GENERAL:Normal, MSK:Abnormal laboratory and microbiology Laboratory Tests 10/16/25 05:16 10/10/25 10:50 Test 10/10/25 10:50 Range/Units Serum Glucose 114 H 74-106 mg/dL Problem List/Assessment/Plan Problem List/Assessment/Plan 70 year old female who is s/p Left TKA POD 1 1. Pain control 2. WBAT 3. CPM as ordered 4. Physical therapy 5. follow up in 2 weeks on 10/30/2025 at 11:00 as scheduled, patient has appt reminder card at bedside 6. prescriptions sent prior to surgery, previous pharmacy did not have oxycodone in stock sent to [facility] pharmacy on [address] in [place] per patient request 7. aquacel dressing to remain in place until 2 week postop visit 8. patient is clear for discharge from orthopedic standpoint with the following discharge recommendations and home health/Pt if a covered benefit as she has transportation issues Total Knee Arthroplasty Discharge Instructions Wound Care 1. You will likely have a gel-type dressing over your wound, you may keep this on for 7-14 days after leaving the hospital until your first post-op visit, unless it becomes soiled or your skin becomes irritated. If a wound vac dressing is placed on your knee this is to be left in place for one week and will be changed as needed. After your remove the dressing or wound vac, the home health nurse may place clean dry dressing over your wound. Keep wound covered, clean and dry for two weeks. 2. [place] will be removed during your initial post-op visit. If you have concerns about our wound, please call the office immediately. If nervous about staple removal can take pain pill one hour prior to appointment. 3. If there is drainage from your wound, change the dressing daily until it stops. If drainage lasts more than 10 days, call our office. 4. Low grade (up to 100 degrees) fever is common for the first week after surgery. You should take your temperature daily. If you have fevers of 101 or more, please call the office. Medication Management 1. You will be discharged with pain medication, a blood thinner (unless you were previously on a blood thinner prior to surgery) and stool softener. Please follow the instructions regarding these medications as provided by your nurse at the hospital upon discharge. 2. Blood clots in the leg are a known complication of surgery. It is very important that you take the medication to protect against clots. Depending on what you are discharged on typically it is Lovenox 40mg daily for 2 weeks or Aspirin 81mg twice daily for 4 weeks. After you finish this, you should then take baby Aspirin (81mg) once daily for 2 weeks. 3. You should restart all of your prescription medications once discharged from the hospital/surgery center unless specifically instructed otherwise. 4. Herbal supplements may be restarted 2 weeks after surgery. 5. If you have been given Coumadin as a blood thinner, please follow up with your nurse obgyn during the first two weeks after surgery to review medications and overall medical well-being. 6. Please note that narcotic pain medication may cause constipation. Please remember to take stool softeners (Colace) when using narcotics to help reduce the change of constipation. You should not use alcohol together with narcotic medication. Activity 1. CPM as ordered, goal is for 6 hours every day for the first 21 days of your recovery. Can break it up in to increments of 2-3 hours at a time. Most hospitals will start at 45 degrees of flexion, and increase by 5 degrees daily until the machine has been maxed out. The goal is to be at 90 degrees by first postop visit in 2 weeks. 2. No pool, jacuzzi, beach, [place] or bath for 6 weeks. Once all scabbing has fallen off patient can begin soaking and submerging knee under water for 15- minute periods at a time. 3. Physical therapy is critical in the first 2 weeks. If having issues with scheduling please inform office. 4. No running or jumping for 6 weeks. 5. Can walk and bear as much weight on the surgical leg as tolerated. No restrictions in regards to walking or standing. [facility] [place] [facility] Instructions 1. Driving is not permitted within the first 2 weeks. 2. Your first postoperative visit will take place 2 weeks after discharge. Please call the office once you are home from the hospital to arrange this appointment. 3. Antibiotic preventative treatment is required before dental or other invasive procedures. Please ask your surgeon about this at your first postoperative visit. If you experience chest pain, shortness of breath or severe painful calf swelling, go to the nearest emergency room to be evaluated. Please call our office once your situation is stabilized. Plan discussed with: Patient Date of Service: Oct 16, 2025 Billing Provider: TRUDI GARY MD Common Visit Codes: NOT BILLABLE HODA SANDERS NP Oct 16, 2025 07:41
[2025-10-16 08:00] VITALS: PULSE 66; RESP 20; O2SAT 98
[2025-10-16 09:00] VITALS: BP 133/74; PULSE 66; RESP 20; TEMP 97.6; O2SAT 98
--- NOTE | 2025-10-16 10:53 | DVHDS2 ---
Discharge Summary Date of Admission Oct 14, 2025 at 12:14 Date of Discharge: Oct 16, 2025 Labs/Diagnostic Data: Laboratory Results Test 10/16/25 05:16 10/10/25 10:50 Hemoglobin 10.9 g/dL (12.2-16.2) Hematocrit 31.9 % (36.0-46.0) White Blood Count 4.9 10^3/uL (4.4-10.8) Red Blood Count 4.00 10^6/uL (4.0-5.20) Mean Corpuscular Volume 91.9 fL (80.0-100.0) Mean Corpuscular Hemoglobin 30.9 pg (28.0-32.0) Mean Corpuscular Hemoglobin Concent 33.6 g/dL (32.0-36.0) Red Cell Distribution Width 13.0 % (11.8-14.3) Platelet Count 244 10^3/uL (140-450) Mean Platelet Volume 9.4 fL (6.9-10.8) Neutrophils (%) (Auto) 46.7 % (37.0-80.0) Lymphocytes (%) (Auto) 40.3 % (10.0-50.0) Monocytes (%) (Auto) 12.5 % (0.0-12.0) Eosinophils (%) (Auto) 0.0 % (0.0-7.0) Basophils (%) (Auto) 0.5 % (0.0-2.0) Neutrophils # (Auto) 2.3 10 ^3/uL (1.6-8.6) Lymphocytes # (Auto) 2.0 10 ^3/uL (0.4-5.4) Monocytes # (Auto) 0.6 10 ^3/uL (0-1.3) Eosinophils # (Auto) 0 10 ^3/uL (0-0.8) Basophils # (Auto) 0 10 ^3/uL (0-0.2) Nucleated Red Blood Cells 0.1 % Prothrombin Time 10.7 sec (9.3-11.8) Prothrombin Time INR 1.01 (0.9-1.15) Activated Partial Thromboplast Time 25.1 SEC (24.5-34.5) Urine Color Yellow (Yellow) Urine Clarity Turbid (Clear) Urine pH 5.5 (5.0-9.0) Urine Specific [place] 1.030 (1.001-1.035) Urine Protein Trace (Negative) Urine Ketones 1+ (Negative) Urine Blood Negative /uL (Negative) Urine Nitrite Negative (Negative) Urine Bilirubin Negative (Negative) Urine Urobilinogen 2 mg/dL (Negative) Urine Leukocyte Esterase 2+ /uL (Negative) Urine RBC 18 /hpf (0 - 4) Urine Microscopic WBC 24 /HPF (0-5) Urine Squamous Epithelial Cells Few /hpf (<5) Urine Bacteria None seen /hpf (None Seen) Urine Hyaline Casts Few /lpf (0 - 2) Urine Mucus Few (None Seen) Urine Glucose Normal mg/dL (Normal) Sodium Level 142 mmol/L (136-145) Potassium Level 4.1 mmol/L (3.5-5.1) Chloride Level 104 mmol/L (98-107) Carbon Dioxide Level 28 mmol/L (20-31) Anion Gap 10 (5-15) Blood Urea Nitrogen 12 mg/dL (9-23) Creatinine 0.69 mg/dL (0.550-1.02) Glomerular Filtration Rate Calc 95 mL/min (>90) BUN/Creatinine Ratio 17.4 (10.0-20.0) Serum Glucose 114 mg/dL (74-106) Calcium Level 9.4 mg/dL (8.7-10.4) Total Bilirubin 0.8 mg/dL (0.2-1.0) Aspartate Amino Transferase (AST) 32 U/L (13-40) Alanine Aminotransferase (ALT) 37 U/L (7-40) Alkaline Phosphatase 103 U/L (46-116) Total Protein 6.6 g/dL (5.7-8.2) Albumin 4.2 g/dL (3.2-4.8) Other Laboratory Tests 10/16/25 05:16 10/10/25 10:50 Brief Hx & Hospital Course: see dictated note Condition at Discharge: Fair Final Diagnosis/Problems List knee surgery Discharge Disposition: Home Discharge Instruct/Medications Diet: Regular Activity: No Restrictions, As Tolerated Follow Up/Referral: fu with pcp/ortho. Medications: resume home meds rest meds per ortho Scheduled Docusate Sodium (Colace), 1 CAP PO BID, (Reported) Magnesium Oxide (Magnesium Oxide), 1 TAB PO DAILY, (Reported) Potassium Chloride (Potassium Chloride Cr), 1 TAB PO DAILY, (Reported) Tramadol Hcl (Tramadol Hcl), 50 MG PO DAILY, (Reported) Miscellaneous Medications Aspirin (Aspirin 81), 81 MG PO, (Reported) Discharge Statement: "Patient was advised to return to the ER or call 911 if any headaches, dizziness, shortness of breath, chest pain, abdominal pain, bleeding, fevers, or worsening of medical condition. Patient was counseled about treatment plan, medications, possible side effects, patientverbalized understanding. All questions were answered to the best of my ability. This discharge took greater then 30 minutes in planning, reviewing documentation, counseling the patient, and discussing with other team members." ASSESSMENT ASSESSMENT Assessment knee surgery Date of Service: Oct 16, 2025 Billing Provider: BARBARA PETERSON MD Common Visit Codes: [id number]-[id number] DISCH DAY >30min BARBARA PETERSON MD Oct 16, 2025 10:53
[2025-10-16] MEDS ORDERED: CEPH500T PO (10:56)
[2025-10-16 11:10] LABS: Hematocrit 32.3 % (36.0-46.0); Hemoglobin 10.8 g/dL (12.2-16.2); Mean Corpuscular Hemoglobin 30.9 pg (28.0-32.0); Mean Corpuscular Volume 92.1 fL (80.0-100.0); Nucleated Red Blood Cells % 0.3 %
--- NOTE | 2025-10-16 11:25 | DVHDS ---
DATE OF DISCHARGE: 10/16/2025 HISTORY OF PRESENT ILLNESS: The patient is a 70-year-old lady who was admitted after she underwent surgery on the left knee for DJD of the knee. HOSPITAL COURSE: The patient did well postoperatively. The patient had a UTI which was treated with antibiotics. The patient is now doing well and will be discharged home to resume her home medications as well as to have physical therapy and a CPM machine. The patient will also be discharged on Keflex 500 mg t.i.d. for 5 days. She will follow up with primary and with Orthopedics. FINAL DIAGNOSES: Therefore: * UTI. * Status post left knee surgery for DJD of the knee. Time spent in discharge planning and review of plan with the patient, nursing, and Orthopedics was 38 minutes. MD ANDRES Pearce/ODALYS TID: [id number] RECEIPT: [id number]
[2025-10-16 12:41] VITALS: BP 133/74; PULSE 66; RESP 20; TEMP 97.6; O2SAT 98
[2025-10-16 13:00] VITALS: BP 149/73; PULSE 69; RESP 20; TEMP 98.3; O2SAT 97
== END 2025-10-16 16:15 | disposition home health service (06) | DRG 470 ==
LOC: SUR 06:42 → OVERFLOW 12:14 → WEST WING 14:57
PROVIDERS: ADMIT Internal Medicine; ATTEND Internal Medicine
PROC: 8E0YXBZ Computer Assisted Procedure of Lower Extremity (ICD-10-PCS; 2025-10-14)
PROC: 0SRD0JZ Replacement of Left Knee Joint with Synthetic Substitute, Open Approach (ICD-10-PCS; principal; 2025-10-14 10:31)
DX: M17.12 Unilateral primary osteoarthritis, left knee (principal); G89.29 Other chronic pain; N39.0 Urinary tract infection, site not specified; Z82.61 Family history of arthritis
CPT/HCPCS: 36415; 73560; 80053; 81001; 85014; 85018; 85025; 85610; 85730; 86850; 86900; 86901; 87086; 97110; 97116; 97163; 97530; G0378; J0131; J1100; J1885; J2250; J2405; J2704